=== PATIENT | male | born 2000 | race Caucasian/White ===

== ENCOUNTER → 2023-03-29 | Outpatient (CLI) | payer OTHER, SELFPAY ==
[2023-03-29 18:35] LABS: Amphetamine Urine VISTA NEGATIVE (<1000 ng/mL); Barbiturate Urine VISTA NEGATIVE (< 200 ng/mL); Benzodiazepine Urine VISTA NEGATIVE (< 200 ng/mL); Cocaine Urine VISTA NEGATIVE (< 300 ng/mL); Ecstacy Urine VISTA NEGATIVE (< 500 ng/mL); Methadone Urine VISTA NEGATIVE (< 300 ng/mL); PCP Urine VISTA NEGATIVE (< 25 ng/mL); THC Urine VISTA NEGATIVE (< 50 ng/mL); Vista UDS pH Range 5
== END | disposition home or self-care (01) ==
PROVIDERS: PCP Family Medicine; Referring Provider Family Medicine; Visit Provider Family Medicine
DX: R53.83 Other fatigue (principal)
CPT/HCPCS: 80307

== ENCOUNTER → 2023-04-04 | Outpatient (CLI) | payer OTHER, SELFPAY ==
[2023-04-04 15:02] LABS: Absolute Neutrophil Count 2.2 X10^3/uL (2.0-7.7); Basophil# 0.04 X10^3/uL; Basophil% 0.8 % (0-1); Eosinophil# 0.09 X10^3/uL; Eosinophils% 1.8 % (0-5); Hematocrit 44.8 % (40-54); Hemoglobin 15.2 g/dL (13.0-16.5); Mean Corp Hgb Conc 33.9 g/dL (32-36); Mean Corpuscular Hgb 30.8 pg (27.0-32.0); Mean Corpuscular Volume 90.7 fL (80-94); Mean Platelet Vol. 10.4 fl (6.2-12.0); Monocyte# 0.43 X10^3/uL; Monocyte% 8.8 % (0-10); NRBC Flagged by Analyzer 0 % (0-5); Neutrophil # 2.21 X10^3/uL (2.7-7.7); Neutrophil % 45.4 % (47-70); Platelet Count 256 K/mm3 (150-450); RBC Distribution Width SD 39.7 fl (35.1-43.9); Red Blood Count 4.94 M/mm3 (4.6-6.2); White Blood Count 4.9 K/mm3 (4.4-11.0)
[2023-04-04 15:29] LABS: Erythrocyte Sedimentation Rate 3 mm/hr (0-20)
[2023-04-04 15:33] LABS: ALB/GLOB Ratio 1.1 RATIO (0.9-2.4); AST(SGOT) 18 U/L (15-37); Alanine Aminotransfer ALT/SGPT 21 U/L (16-61); Albumin, Serum 4.6 g/dL (3.2-5.0); Alkaline Phosphatase 78 U/L (45-117); Anion Gap 5 (5-15); BUN 19 mg/dL (7-18); BUN/Creat Ratio 20.1 RATIO (10-20); CRP < 2.90 mg/L (0.0-3.0); Calcium,Total 9.6 mg/dL (8.5-10.1); Chloride 102 mmol/L (98-107); Creatinine, Serum 0.94 mg/dL (0.70-1.30); EST Glomerular Filtration Rate 104 mL/min (>60); Est Glom Filt Rate - Afr Amer 126 mL/min (>60); Ferritin 111 ng/mL (26-388); Globulin 4.1 g/dL (2.2-4.2); Glucose 91 mg/dL (74-106); Iron 103 ug/dL (65-175); Potassium 4.3 mmol/L (3.5-5.1); Protein, Total 8.7 g/dL (6.4-8.2); Sodium Level 135 mmol/L (136-145); Thyroid Stim Hormone (TSH) 1.35 uIU/mL (0.358-3.74)
[2023-04-04 15:35] LABS: Vitamin D,25 Hydroxy 41.4 ng/mL
[2023-04-06 08:13] LABS: ASO Titer 28.3 IU/mL (0.0-200.0)
== END | disposition home or self-care (01) ==
LOC: MTLAB 13:47
PROVIDERS: PCP Family Medicine; Referring Provider Family Medicine; Visit Provider Family Medicine
DX: F41.9 Anxiety disorder, unspecified (principal); A69.20 Lyme disease, unspecified; R53.83 Other fatigue; F50.9 Eating disorder, unspecified
CPT/HCPCS: 36415; 80053; 82306; 82728; 83540; 84403; 84443; 85025; 85652; 86060; 86140

== ENCOUNTER → 2023-05-09 | Outpatient (CLI) | payer OTHER, SELFPAY ==
[2023-05-09 16:11] LABS: Bacteria 0 SEEN /hpf (None Seen); Mucous, Urine 0 SEEN /hpf (<or=2+); Red Blood Cells-Urine 0 SEEN /hpf (0-5); Squamous Epithelial Cells - UA 0 SEEN /hpf (0-5); White Blood Cells 0 SEEN /hpf (0-5)
[2023-05-09 17:41] LABS: Color, Urine Yellow (Yellow); Glucose, Dipstick Normal (Normal); Ketone-Dipstick 5 mg/dl (Negative); Leukocyte Esterase-Dipstick Negative /ul (Negative); Nitrite-Dipstick Negative (Negative); Occult Blood-Urine Negative /ul (Negative); Protein-Dipstick 30 mg/dl (Negative); Specific Gravity, Urine 1.015 (1.002-1.030); Urine Bilirubin Dipstick Negative (Negative); Urine Clarity Clear (Clear); Urine Urobilinogen Normal (Normal); Urine pH 6.5 (5.0 - 8.0)
[2023-05-09 18:56] LABS: Prealbumin 19.6 mg/dL (20.0-40.0)
[2023-05-09 19:12] LABS: HIV - WCH Non-Reactive (Nonreactive); Hepatitis C Antibody Non-Reactive (Nonreactive)
--- OUTSIDE RECORDS SUMMARY | 2023-05-09 19:46 | XMS RPT_ITS | CCD ---
Author Name Unknown Address [id number] [place] [address] Organization [facility] Care Team Providers Care Porcelain Buildup Assistant Name Role Phone PRISCILLA SENA Unavailable Unavailable FRANK CHO Unavailable Unavailable PRISCILLA SENA Unavailable Unavailable Alex Owens Unavailable Unavailable Unavailable Unavailable Unavailable Priscilla Dang Unavailable Siri Gongora Unavailable Unavailable Medications Current Medications Medication Drug Class(es) Dates Sig (Normalized) Sig (Original) mirtazapine 7.5 mg oral tablet (1 source) take 1 tablet by agusto th once daily mirtazapine 7.5 mg oral tablet ; 1 tab(s) orally once a day Quantity: 0 Refills: 0 Ordered: 25-Sep-2020 Alex Olivas Generic Substitution Allowed Completed/Discontinued Medications Medication Drug Class(es) Dates Sig (Normalized) Sig (Original) pantoprazole 40 mg delayed release oral tablet (1 source) Proton Pump Inhibitor Start: 03-15-2019 take 1 tablet by mouth once daily Pantoprazole Sodium 40 MG Oral Tablet Delayed Release TAKE 1 TABLET DAILY. Quantity: 30 Refills: 6 Alex Owens DO Start : 15-Mar-2019 Active Problems Problem Classification Problem Date Documented Da te Episodic/Chronic Residual codes; unclassified (1 source) Early satiety; Translations: [Early satiety] Episodic Unclassified (2 sources) FATIGUE BODY ACHES 09-25-2020 Results Test Name Value Interpretation Reference Range Facil ity Vital Signs Date Time Vital Sign Value Performing Clinician Facility 09-25-2020 15:07-0400 Body height 177.8 cm Priscilla Dang Other Phone: [facility] 09-25-2020 15:07-0400 Body temperature 98.96 [degF] Priscilla Dang Other Phone: [facility] 09-25-2020 15:07-0400 Diastolic blood pressure 73 mm[Hg] Priscilla Dang Other Phone: [facility] 09-25-2020 15:07-0400 Heart rate 104 /min Priscilla Dang Other Phone: [facility] 09-25-2020 15:07-0400 Respiratory rate 20 /min Priscilla Dang Other Phone: [facility] 09-25-2020 15:07-0400 SaO2% (BldA) [Mass fraction] 100 % Priscilla Dang Other Phone: [facility] 09-25-2020 15:07-0400 Systolic blood pressure 121 mm[Hg] Priscilla Dang Other Phone: [facility] Encounters Encounter Date Encounter Type Care Provider Facility Start: 09-25-2020 End: 09-25-2020 Emergency department patient visit Siri Gongora [facility] Start: 11-09-2017 End: 11-10-2017 Patient encounter PRISCILLA SENA [facility] Payers Date Payer Category Payer Policy ID Unknown [id number] Unknown [facility]\MMO S UPER MED Social History Date Type Detail Facility Assertion Unknown if ever smoked [facility] Work Phone: Tobacco smoking consumption unknown [facility] Functional Status Date Assessment Result Facility NEGATED: Highlighted row Functional performance Functional status health issues are not documented Disease [facility] [place] [facility] Work Phone: Mental Status Date Assessment Result Facility NEGATED: Highlighted row Cognitive function [Interpretation] Cognitive status health issues are not documented Disease [facility] Work Phone: Summary Purpose Family History No Family History Records FoundNo Family History Records FoundNo Family History Records FoundNo Family History Records Found Advance Directives No Advanced Directives Records FoundNo Advanced Directives Records FoundNo Advanced Directives Records FoundNo Advanced Directives Records Found Additional Source Comments (unrecognized sect ion and content) No Status Records FoundNo Status Records FoundNo Status Records FoundNo Status Records Found INFORMATION SOURCE (unrecogn ized section and content) DATE CREATED AUTHOR AUTHOR'S ORGANIZ ATION 11/06/2018 [facility] DATE CREATED AUTHOR AUTHOR'S ORGANIZ ATION 09/30/2020 [facility] DATE CREATED AUTHOR AUTHOR'S ORGANIZ ATION 02/20/2021 [facility] <item> Privacy Markings (unrecogniz ed section and content) Section Author: Neema Vo PROHIBITION ON REDISCLOSURE OF CONFIDENTIAL INFORMATION This notice accompanies a disclosure of information concerning a client made to you with the consent of such client. FOR RECORDS PERTAINING TO PATIENTS WHO ARE OR HAVE BEEN ENROLLED IN A CHEMICAL DEPENDENCY/SUBSTANCEABUSE PROGRAM, SOME INFORMATION MAY BE OMITTED. This clinical summary was aggregated from multiple sources. Caution should be exercised in using it in the provision of clinical care. This summary normalizes information from multiple sources, and as a consequence, information in this document may materially change the coding, format and clinical context of patient data. In addition, data may be omitted in some cases. CLINICAL DECISIONS SHOULD BE BASED ON THE PRIMARY CLINICAL RECORDS. Bolongaro Trevor [facility]. provides no warranty or guarantee of the accuracy or completeness of information in this document.
[2023-05-11 14:10] LABS: Lyme IGG CIA Positive (Negative); Lyme IGM CIA Positive (Negative); Lyme Scn Total Ab w/Rflx Positive (Negative)
== END | disposition home or self-care (01) ==
LOC: MTLAB 16:05
PROVIDERS: PCP Family Medicine; Referring Provider Family Medicine; Visit Provider Family Medicine
DX: R63.4 Abnormal weight loss (principal); R53.83 Other fatigue
CPT/HCPCS: 36415; 81001; 84134; 86618; 86703; 86803

== ENCOUNTER → 2023-05-10 | Outpatient (CLI) | payer OTHER, SELFPAY ==
--- OUTSIDE RECORDS SUMMARY | 2023-05-10 19:32 | XMS RPT_ITS | CCD ---
Author Name Unknown Address [address] [place] [address] Organization [facility] Care Team Providers Care Barbering Instructor Name Role Phone PRISCILLA SENA Unavailable Unavailable [...] height 177.8 cm Priscilla Dang Other Phone: [facility] 09-25-2020 15:07-0400 Body temperature 98.96 [degF] Priscilla Dang Other Phone: [facility] 09-25-2020 15:07-0400 Diastolic blood pressure 73 mm[Hg] Priscilla Dang Other Phone: [facility] 09-25-2020 15:07-0400 Heart rate 104 /min Priscilla Dang Other Phone: [facility] 09-25-2020 15:07-0400 Respiratory rate 20 /min Priscilla Dang Other Phone: [facility] 09-25-2020 15:07-0400 SaO2% (BldA) [Mass fraction] 100 % Priscilla Dang Other Phone: [facility] 09-25-2020 15:07-0400 Systolic blood pressure 121 mm[Hg] Priscilla Dang Other Phone: [facility] Encounters Encounter Date Encounter Type Care Provider Facility Start: 09-25-2020 End: 09-25-2020 Emergency department patient visit Siri Gongora [facility] Start: 11-09-2017 End: 11-10-2017 Patient encounter PRISCILLA SENA [facility] Payers Date Payer Category Payer Policy ID Unknown [id number] Unknown [facility]\MMO S UPER MED Social History Date Type Detail Facility Assertion Unknown if ever smoked [facility] [facility] Work Phone: Tobacco smoking consumption unknown [facility] Functional Status Date Assessment Result Facility NEGATED: [...] DATE CREATED AUTHOR AUTHOR'S ORGANIZ ATION 11/06/2018 [facility] DATE CREATED AUTHOR AUTHOR'S ORGANIZ ATION 09/30/2020 [facility] DATE CREATED AUTHOR AUTHOR'S ORGANIZ ATION 02/20/2021 [...] BE BASED ON THE PRIMARY CLINICAL RECORDS. [employer]. provides no warranty or guarantee of the accuracy or completeness of information in this document.
[2023-05-12 16:10] LABS: H. PYLORI STOOL AG Negative (Negative)
== END | disposition home or self-care (01) ==
LOC: MTLAB 14:33
PROVIDERS: PCP Family Medicine; Referring Provider Family Medicine; Visit Provider Family Medicine
DX: R63.4 Abnormal weight loss (principal)
CPT/HCPCS: 87338

== ENCOUNTER 2025-02-15 22:40 | Emergency (ER) | payer SELFPAY ==
[2025-02-15 22:42] VITALS: BP 119/69; PULSE 96; RESP 18; TEMP 36.3; O2SAT 98; BMI 17.6
--- NOTE | 2025-02-15 22:59 | EKG12_ITS ---
Test Reason : DYSRHYTHMIA Blood Pressure : */* mmHG Vent. Rate : 85 BPM Atrial Rate : 85 BPM P-R Int : 144 ms QRS Dur : 102 ms QT Int : 352 ms P-R-T Axes : 84 61 23 degrees QTcB Int : 418 ms Normal sinus rhythm Nonspecific T wave abnormality Abnormal ECG Confirmed by WES BLUNT, DANE ([id number]), technical editor RAINER CASTRO ([id number]) on 02/18/2025 6:39:42 AM Referred By: Confirmed By: DANE HARVEY MD
--- NOTE | 2025-02-15 22:59 | CT_ITS ---
PROCEDURE: CT CHEST, ABD, PEL W/CONTRAST 02/16/2025 REASON FOR EXAM: 20 LBS WEIGHT LOSS IN LAST MONTH, POOR PO INTAKE TECHNIQUE: Chest, abdomen and pelvis CT with intravenous contrast. Coronal and Sagittal reconstruction series were provided. One or more dose reduction techniques were used (e.g., Automated exposure control, adjustment of the mA and/or kV according to patient size, use of iterative reconstruction technique. PATIENT PREPARATION: Per protocol ORAL CONTRAST TYPE: None. CONTRAST: Isovue-350 VOLUME: 100mL RADIATION DOSE SUMMARY: CTDlvol: 6.13 mGy DLP: 495 mGycm COMPARISON: None. FINDINGS: Normal enhancement of the main pulmonary artery and right and left pulmonary arteries. Normal thoracic aorta and visualized great vessels. Normal heart and pericardium. Normal mediastinum. Normal hilar regions. Normal visualized trachea and bronchi. The lungs are well expanded. Normal pulmonary parenchyma. Normal pleura. Normal chest wall structures. Normal liver. Normal gallbladder and extrahepatic biliary system. Normal spleen. Normal pancreas. Normal bilateral adrenal glands. Normal size of the right kidney. There is no right renal mass. There are no right renal calculi. There is no right hydronephrosis. Normal visualized right ureter. Normal size of the left kidney. There is no left renal mass. There are no left renal calculi. There is no left hydronephrosis. Normal visualized left ureter. Normal visualized stomach. Normal small intestine. Normal colon. The appendix is visualized and appears normal. There is no demonstrated peritoneal fluid. Normal abdominal aorta. Normal inferior vena cava. Normal retroperitoneum. Normal urinary bladder. There is no pelvic mass lesion or lymphadenopathy. There is no pelvic fluid. Normal abdominal wall. Normal osseous structures. CT/CT Chest, Abd, Pel w/Contrast IMPRESSION: No CT evidence of an acute abnormality. No mass lesion is identified. Reading Location: [place] [id number]
--- OUTSIDE RECORDS SUMMARY | 2025-02-15 23:01 | XMS RPT_ITS | CCD ---
Author Organization [facility] Care Team Providers Care Vacuum Drier Tender Name Role Phone PRISCILLA SENA Unavailable Unavailable FRANK CHO Unavailable Unavailable PRISCILLA SENA Unavailable Unavailable Alex Owens Unavailable Unavailable Unavailable Unavailable Unavailable Priscilla Dang Unavailable Siri Gongora Unavailable Unavailable Sylvester Calvin Attending Unavailable Sylvester Calvin Referring Unavailable Sylvester Calvin Primary Care Unavailable Sylvester Calvin Referring Unavailable Sylvester Calvin Primary Care Unavailable Sylvester Calvin Attending Unavailable Sylvester Calvin Referring Unavailable Sylvester Calvin Primary Care Unavailable Sylvester Calvin Attending Unavailable Sylvester Calvin Referring Unavailable Sylvester Calvin Primary Care Unavailable Sylvester Calvin Attending Unavailable Medications Current Medications Medication Drug Class(es) [...] Classification Problem Date Documented Da te Episodic/Chronic Anxiety disorders (1 source) Anxiety disorder, unspecified; Translations: [Anxiety disorder, unspecified] Onset: 04-07-2023 Chronic Malaise and fatigue (1 source) Other fatigue; Translations: [Other fatigue] Onset: 04-01-2023 Episodic Other nutritional; endocrine; and metabolic disorders (1 source) Abnormal weight loss; Translations: [Abnormal weight loss] Onset: 05-16-2023 Episodic Residual codes; unclassified (1 source) Early satiety; Translations: [Early satiety] Episodic Unclassified (2 sources) FATIGUE BODY ACHES 09-25-2020 Comment on above: FATIGUE BODY ACHES Results Test Name Value Interpretation Reference Range Facility H. PYLORI STOOL AGon 024 H PYLORI STL AG Negative Normal Negative [facility] Comment on above: Result Comment: Perf ormed at: [facility] [id number] Emt/Paramedic: Jan Choe PhD, Phone: [phone] Performed By: #### L 503.6150, L503.6550, L101.9900, L501.9520, L500.4050, L3100.7700, L100.0100, L509.3000, L506.1000, L501.6710 #### [facility] [address] [facility] [place], [address] Lyme Screen W/Reflex WBon Lyme IGG VAHE Positive Normal Negative [facility] Comment on above: Performed By: #### L 503.6150, L503.6550, L101.9900, L501.9520, L500.4050, L3100.7700, L100.0100, L509.3000, L506.1000, L501.6710 #### [facility] [address] [place], [place], [id number] Lyme IGM VAHE Positive Normal Negative [facility] Comment on above: Performed By: #### L 503.6150, L503.6550, L101.9900, L501.9520, L500.4050, L3100.7700, L100.0100, L509.3000, L506.1000, L501.6710 #### [facility] [address] [place], [place], [id number] LYME SCREEN Ab Positive Normal Negative [facility] Comment on above: Result Comment: Evid ence of Lyme antibodies; confirmation indicated. See Lyme IgG and Lyme IgM results (reflex testing), and Lyme interpretation for final interpretation of the Lyme serology reflex algorithm. Performed By: #### L 503.6150, L503.6550, L101.9900, L501.9520, L500.4050, L3100.7700, L100.0100, L509.3000, L506.1000, L501.6710 #### [facility] [address] [place], [place], [id number] LYME SCREEN Ab Comment Abnormal . [facility] Comment on above: Result Comment: Lyme IgM/IgG Abs Detected Results are consistent with B. burgdorferi infection (Lyme disease) in the recent or remote past. IgG-class antibodies may remain detectable for months to years following resolution of infection. Results should not be used to monitor or establish adequate response to therapy. Response to therapy is confirmed through resolution of clinical symptoms; additional laboratory testing should not be performed. If both tests are equivocal consider repeat testing in 7 to 14 days if clinically warranted. Performed at: [facility] [address] [id number] Emt/Paramedic: Jan Choe PhD, Phone: [phone] Performed By: #### L 503.6150, L503.6550, L101.9900, L501.9520, L500.4050, L3100.7700, L100.0100, L509.3000, L506.1000, L501.6710 #### [facility] [address] [place], [place], [id number] Stool Helicobacter pylori an tigen detection by immunoassayOrdered By: Sylvester Calvin on 05-10-2023 H. pylori Ag IA Ql (Stl) Negative Negative [facility] Comment on above: Performed at: [facility] [address] [id number] Director: Jan Choe PhD, Phone: [phone] Basophil percentageOrdered B y: Sylvester Calvin on 05-09-2023 Basophil percentage 0 SEEN /hpf 0-5 [facility] Bilirubin Test strip Ql (U)O rdered By: Sylvester Calvin on 05-09-2023 Bilirubin Ql (U) Negative Negative [facility] HIV - WCHon 05-09-2023 HIV Non-Reactive Normal Nonreactive [facility] Comment on above: Performed By: #### L 503.6150, L503.6550, L101.9900, L501.9520, L500.4050, L3100.7700, L100.0100, L509.3000, L506.1000, L501.6710 #### [facility] [address] [place], [address] HIV 1 and HIV-2 antibody ass ay with HIV-1 p24 antigen detectionOrdered By: Sylvester Calvin on 05-09-2023 HIV 1+2 Ab+HIV1 p24 Ag IA Ql Non-Reactive Nonreactive [facility] Hepatitis C Antibodyon 05-08 Hepatitis C AB Non-Reactive [facility] Comment on above: Result Comment: Non Reactive: < 0.8 Equivocal: >/= 0.8 to < 1.0 Reactive: >/= 1.0 The CDC requires that a reactive/equivocal HCV antibody result be sent out for confirmation. HCV Quant by PCR testing. Performed By: #### L 503.6150, L503.6550, L101.9900, L501.9520, L500.4050, L3100.7700, L100.0100, L509.3000, L506.1000, L501.6710 #### [facility] [address] [place], [address] Interpretation of Borrelia b urgdorferi antibody assayOrdered By: Sylvester Calvin on 05-09-2023 B. burgdorferi Ab (S) [Interp] Comment . [facility] Comment on above: Lyme IgM/IgG Abs Det ectedResults are consistent with B. burgdorferi infection (Lymedisease) in the recent or remote past. IgG-class antibodiesmay remain detectable for months to years followingresolution of infection. Results should not be used tomonitor or establish adequate response to therapy. Responseto therapy is confirmed through resolution of clinicalsymptoms; additional laboratory testing should not beperformed. If both tests are equivocal consider repeattesting in 7 to 14 days if clinically warranted.Performed at: [facility] [id number] Director: Jan Choe PhD, Phone: [phone] Ketones Test strip Ql (U)Ord ered By: Sylvester Calvin on 05-09-2023 Ketones Ql (U) 5 mg/dl Negative [facility] Mucus LM Ql (Urine sed)Order ed By: Sylvester Calvin on 05-09-2023 Mucus Ql (Urine sed) 0 SEEN /hpf [facility] Nitrite Test strip Ql (U)Ord ered By: Sylvester Calvin on 05-09-2023 Nitrite Ql (U) Negative Negative [facility] No Panel InformationOrdered By: Sylvester Calvin on 05-09-2023 CSF Lyme Disease IgM Antibody Positive Negative [facility] Hepatitis C Antibody Non-Reactive Nonreactive [facility] Comment on above: Non Reactive: < 0.8 Equivocal: >/= 0.8 to < 1.0 Reactive: >/= 1.0The CDC requires that a reactive/equivocal HCV antibody result be sent out for confirmation. HCV Quant by PCR testing. Lyme Disease IgG Antibody Positive Negative [facility] Urine RBC 0 SEEN /hpf 0-5 [facility] Prealbuminon 05-09-2023 Prealbumin [Mass/Vol] 19.6 mg/dL Low 20.0-40.0 [facility] Comment on above: Performed By: #### L 503.6150, L503.6550, L101.9900, L501.9520, L500.4050, L3100.7700, L100.0100, L509.3000, L506.1000, L501.6710 #### [facility] [address] [place], [place], [address] Protein Test strip Ql (U)Ord ered By: Sylvester Calvin on 05-09-2023 Protein Ql (U) 30 mg/dl Negative [facility] Serum or plasma transthyreti n measurement (mass/volume)Ordered By: Sylvester Calvin on 05-09-2023 Prealbumin [Mass/Vol] 19.6 mg/dL 20.0-40.0 [facility] Squamous epithelial cells de tection in urine sediment by light microscopyOrdered By: Sylvester Calvin on 05-09-2023 Epithelial cells.squamous LM Ql (Urine sed) 0 SEEN /hpf 0-5 [facility] Thin prep Papanicolaou smear with manual screeningOrdered By: Sylvester Calvin on 05-09-2023 Thin prep Papanicolaou smear with manual screening Positive Negative [facility] Comment on above: Evidence of Lyme ant ibodies; confirmation indicated. SeeLyme IgG and Lyme IgM results (reflex testing), and Lymeinterpretation for final interpretation of the Lymeserology reflex algorithm. Urinalysis, Completeon 05-08 BACTERIA 0 SEEN Normal None Seen [facility] Comment on above: Order Comment: CLEAN CATCH Performed By: #### L 503.6150, L503.6550, L101.9900, L501.9520, L500.4050, L3100.7700, L100.0100, L509.3000, L506.1000, L501.6710 #### [facility] [address] [place], [place], [id number] EPI,SQUAMOUS 0 SEEN Normal 0-5 [facility] Comment on above: Order Comment: CLEAN CATCH Performed By: #### L 503.6150, L503.6550, L101.9900, L501.9520, L500.4050, L3100.7700, L100.0100, L509.3000, L506.1000, L501.6710 #### [facility] [address] [place], [address] Mucus Ql (Urine sed) 0 SEEN Normal [facility] Comment on above: Order Comment: CLEAN CATCH Performed By: #### L 503.6150, L503.6550, L101.9900, L501.9520, L500.4050, L3100.7700, L100.0100, L509.3000, L506.1000, L501.6710 #### [facility] [address] [place], [address] RBC 0 SEEN Normal 0-5 [facility] Comment on above: Order Comment: CLEAN CATCH Performed By: #### L 503.6150, L503.6550, L101.9900, L501.9520, L500.4050, L3100.7700, L100.0100, L509.3000, L506.1000, L501.6710 #### [facility] [address] [place], [address] WBC 0 SEEN Normal 0-5 [facility] Comment on above: Order Comment: CLEAN CATCH Performed By: #### L 503.6150, L503.6550, L101.9900, L501.9520, L500.4050, L3100.7700, L100.0100, L509.3000, L506.1000, L501.6710 #### [facility] [address] [place], [address] Urine blood detectionOrdered By: Sylvester Calvin on 05-09-2023 RBC Ql (U) Negative Negative [facility] Urine clarityOrdered By: Sanjay Calvin on 05-09-2023 Clarity (U) Clear Clear [facility] Urine color determinationOrd ered By: Sylvester Calvin on 05-09-2023 Color (U) Yellow Yellow [facility] Urine glucose detectionOrder ed By: Sylvester Calvin on 05-09-2023 Glucose Ql (U) Normal mg/dl Normal [facility] Urine leukocyte esterase det ection by dipstickOrdered By: Sylvester Calvin on 05-09-2023 Leukocyte esterase Test strip Ql (U) Negative Negative [facility] Urine pHOrdered By: Brenda Calvin on 05-09-2023 pH (U) 6.5 [pH] 5.0 - 8.0 [facility] Urine sediment bacteria coun t by microscopy (number/high power field)Ordered By: Sylvester Calvin on 05-09-2023 Bacteria LM.HPF (Urine sed) [#/Area] 0 /[HPF] None Seen [facility] Urine specific gravity measu rementOrdered By: Sylvester Calvin on 05-09-2023 Specific gravity (U) [Rel density] 1.015 1.002-1.030 [facility] Urine urobilinogen measureme ntOrdered By: Sylvester Calvin on 05-09-2023 Urobilinogen Ql (U) Normal mg/dl Normal [facility] ASO Titeron 04-06-2023 ASO Ab 28.3 IU/mL Normal 0.0-200.0 [facility] Comment on above: Result Comment: Perf ormed at: [facility] [address] [place], [place] [id number] Emt/Paramedic: Jan Choe PhD, Phone: [phone] Performed By: #### L 503.6150, L503.6550, L101.9900, L501.9520, L500.4050, L3100.7700, L100.0100, L509.3000, L506.1000, L501.6710 #### [facility] [address] [place], [address] ASO titerOrdered By: Cezar Calvin on 04-04-2023 Streptolysin O Ab (S) [Titer] 28.3 IU/mL 0.0-200.0 [facility] Comment on above: Performed at: [facility] [address] [place], [place] [id number] Director: Jan Choe PhD, Phone: [phone] Absolute lymphocyte countOrd ered By: Sylvester Calvin on 04-04-2023 Lymphocytes Auto (Unsp spec) [#/Vol] 2.10 10*3/uL 0.83-4.51 [facility] Automated lymphocyte count a s percentage of total leukocytesOrdered By: Sylvester Calvin on 04-04-2023 Lymphocytes/100 WBC Auto (Unsp spec) 43.0 % 19-41 [facility] Basophil percentageOrdered B y: Sylvester Calvin on 04-04-2023 Basophils/100 WBC (Bld) 0.8 % 0-1 [facility] Bilirubin [Mass/Vol] 1.30 mg/dL 0.20-1.00 [facility] Comment on above: For patients on eltr ombopag therapy, use of Dimension [place] TBIL is not recommended. Chloride [Moles/Vol] 102 mmol/L 98-107 [facility] Eosinophils/100 WBC (Bld) 1.8 % 0-5 [facility] Glucose [Mass/Vol] 91 mg/dL 74-106 [facility] Hemoglobin (Bld) [Mass/Vol] 15.2 g/dL 13.0-16.5 [facility] Monocytes/100 WBC (Bld) 8.8 % 0-10 [facility] Neutrophils (Bld) [#/Vol] 2.2 10*3/uL 2.0-7.7 [facility] Neutrophils/100 WBC (Bld) 45.4 % 47-70 [facility] Potassium [Moles/Vol] 4.3 mmol/L 3.5-5.1 [facility] Protein [Mass/Vol] 8.7 g/dL 6.4-8.2 [facility] Sodium [Moles/Vol] 135 mmol/L 136-145 [facility] Testosterone [Mass/Vol] 578.29 ng/dL [facility] Comment on above: CENTRAL 90% REFERENC E RANGES MALE AGE <50 197.44 - 669.58 ng/dL MALE AGE > or = 50 187.72 - 684.19 ng/dL FEMALE AGE <50 8.38 - 35.01 ng/dL FEMALE AGE > or = 50 <7.00 - 35.92 ng/dL Effective as of 09/30/20 WBC (Bld) [#/Vol] 4.9 10*3/uL 4.4-11.0 [facility] CBC W/Diff, Automatedon 03-08 Absolute Lymph 2.10 X10 3/uL Normal 0.83-4.51 [facility] Comment on above: Performed By: #### L 503.6150, L503.6550, L101.9900, L501.9520, L500.4050, L3100.7700, L100.0100, L509.3000, L506.1000, L501.6710 #### [facility] [address] [facility], [address] Absolute Neut 2.2 X10 3/uL Normal 2.0-7.7 [facility] Comment on above: Performed By: #### L 503.6150, L503.6550, L101.9900, L501.9520, L500.4050, L3100.7700, L100.0100, L509.3000, L506.1000, L501.6710 #### [facility] [address] [facility] [place], [place], [phone] (612) Basophils/100 WBC (Bld) 0.8 % Normal 0-1 [facility] Comment on above: Performed By: #### L 503.6150, L503.6550, L101.9900, L501.9520, L500.4050, L3100.7700, L100.0100, L509.3000, L506.1000, L501.6710 #### [facility] [address] [facility] [place], [place], [phone] (554) Eosinophils/100 WBC (Bld) 1.8 % Normal 0-5 [facility] Comment on above: Performed By: #### L 503.6150, L503.6550, L101.9900, L501.9520, L500.4050, L3100.7700, L100.0100, L509.3000, L506.1000, L501.6710 #### [facility] [address] [place], [place], [phone] ([phone]) Erythrocyte distribution width (RBC) [Ratio] 12.0 % Normal 11.6-14.6 [facility] Comment on above: Performed By: #### L 503.6150, L503.6550, L101.9900, L501.9520, L500.4050, L3100.7700, L100.0100, L509.3000, L506.1000, L501.6710 #### [facility] [address] [place], [address] Hematocrit (Bld) [Volume fraction] 44.8 % Normal 40-54 [facility] Comment on above: Performed By: #### L 503.6150, L503.6550, L101.9900, L501.9520, L500.4050, L3100.7700, L100.0100, L509.3000, L506.1000, L501.6710 #### [facility] [address] [place], [address] Hemoglobin (Bld) [Mass/Vol] 15.2 g/dL Normal 13.0-16.5 [facility] Comment on above: Performed By: #### L 503.6150, L503.6550, L101.9900, L501.9520, L500.4050, L3100.7700, L100.0100, L509.3000, L506.1000, L501.6710 #### [facility] [address] [place], [address] IG% 0.200 Normal 0.0-0.9 [facility] Comment on above: Result Comment: IG% - Immature Granulocytes (promyelocytes, myelocytes and metamyelocytes) > 1% indicates that a LEFT SHIFT is Present. Performed By: #### L 503.6150, L503.6550, L101.9900, L501.9520, L500.4050, L3100.7700, L100.0100, L509.3000, L506.1000, L501.6710 #### [facility] [address] [place], [address] Lymphocytes/100 WBC (Bld) 43.0 % High 19-41 [facility] Comment on above: Performed By: #### L 503.6150, L503.6550, L101.9900, L501.9520, L500.4050, L3100.7700, L100.0100, L509.3000, L506.1000, L501.6710 #### [facility] [address] [place], [address] MCH (RBC) [Entitic mass] 30.8 pg Normal 27.0-32.0 [facility] Comment on above: Performed By: #### L 503.6150, L503.6550, L101.9900, L501.9520, L500.4050, L3100.7700, L100.0100, L509.3000, L506.1000, L501.6710 #### [facility] [address] [place], [address] MCHC (RBC) [Mass/Vol] 33.9 g/dL Normal 32-36 [facility] Comment on above: Performed By: #### L 503.6150, L503.6550, L101.9900, L501.9520, L500.4050, L3100.7700, L100.0100, L509.3000, L506.1000, L501.6710 #### [facility] [address] [place], [address] MCV (RBC) [Entitic vol] 90.7 fL Normal 80-94 [facility] Comment on above: Performed By: #### L 503.6150, L503.6550, L101.9900, L501.9520, L500.4050, L3100.7700, L100.0100, L509.3000, L506.1000, L501.6710 #### [facility] [address] [place], [address] Monocytes/100 WBC (Bld) 8.8 % Normal 0-10 [facility] Comment on above: Performed By: #### L 503.6150, L503.6550, L101.9900, L501.9520, L500.4050, L3100.7700, L100.0100, L509.3000, L506.1000, L501.6710 #### [facility] [address] [place], [address] Neutrophils/100 WBC (Bld) 45.4 % Low 47-70 [facility] Comment on above: Performed By: #### L 503.6150, L503.6550, L101.9900, L501.9520, L500.4050, L3100.7700, L100.0100, L509.3000, L506.1000, L501.6710 #### [facility] [address] [place], [address] Nucleated RBC (Bld) [#/Vol] 0 10*3/uL Normal 0-5 [facility] Comment on above: Performed By: #### L 503.6150, L503.6550, L101.9900, L501.9520, L500.4050, L3100.7700, L100.0100, L509.3000, L506.1000, L501.6710 #### [facility] [address] [place], [address] Platelet mean volume (Bld) [Entitic vol] 10.4 fL Normal 6.2-12.0 [facility] Comment on above: Performed By: #### L 503.6150, L503.6550, L101.9900, L501.9520, L500.4050, L3100.7700, L100.0100, L509.3000, L506.1000, L501.6710 #### [facility] [address] [place], [address] Platelets (Bld) [#/Vol] 256 10*3/uL Normal 150-450 [facility] Comment on above: Performed By: #### L 503.6150, L503.6550, L101.9900, L501.9520, L500.4050, L3100.7700, L100.0100, L509.3000, L506.1000, L501.6710 #### [facility] [address] [place], [address] RBC (Bld) [#/Vol] 4.94 10*6/uL Normal 4.6-6.2 [facility] Comment on above: Performed By: #### L 503.6150, L503.6550, L101.9900, L501.9520, L500.4050, L3100.7700, L100.0100, L509.3000, L506.1000, L501.6710 #### [facility] [address] [place], [address] RDW SD 39.7 fl Normal 35.1-43.9 [facility] Comment on above: Performed By: #### L 503.6150, L503.6550, L101.9900, L501.9520, L500.4050, L3100.7700, L100.0100, L509.3000, L506.1000, L501.6710 #### [facility] [address] [place], [address] WBC (Bld) [#/Vol] 4.9 10*3/uL Normal 4.4-11.0 [facility] Comment on above: Performed By: #### L 503.6150, L503.6550, L101.9900, L501.9520, L500.4050, L3100.7700, L100.0100, L509.3000, L506.1000, L501.6710 #### [facility] [address] [place], [address] CRPon 04-04-2023 C-REACTIVE PROT < 2.90 Normal 0.0-3.0 [facility] Comment on above: Result Comment: C-Re active Protein (CRP) provides useful information for the diagnosis, therapy and monitoring of inflammatory processes and associated diseases. For the evaluation of Relative Risk for Cardiovascular Disease, a High Sensitivity CRP (HSCRP) should be ordered. Performed By: #### L 503.6150, L503.6550, L101.9900, L501.9520, L500.4050, L3100.7700, L100.0100, L509.3000, L506.1000, L501.6710 #### [facility] [address] [place], [address] Comprehensive Metabolic Prof ilon 04-04-2023 Albumin [Mass/Vol] 4.6 g/dL Normal 3.2-5.0 [facility] Comment on above: Performed By: #### L 503.6150, L503.6550, L101.9900, L501.9520, L500.4050, L3100.7700, L100.0100, L509.3000, L506.1000, L501.6710 #### [facility] [address] [place], [address] Albumin/Globulin [Mass ratio] 1.1 {ratio} Normal 0.9-2.4 [facility] Comment on above: Performed By: #### L 503.6150, L503.6550, L101.9900, L501.9520, L500.4050, L3100.7700, L100.0100, L509.3000, L506.1000, L501.6710 #### [facility] [address] [place], [address] ALK P 78 U/L Normal 45-117 [facility] Comment on above: Performed By: #### L 503.6150, L503.6550, L101.9900, L501.9520, L500.4050, L3100.7700, L100.0100, L509.3000, L506.1000, L501.6710 #### [facility] [address] [place], [address] ALT [Catalytic activity/Vol] 21 U/L Normal 16-61 [facility] Comment on above: Performed By: #### L 503.6150, L503.6550, L101.9900, L501.9520, L500.4050, L3100.7700, L100.0100, L509.3000, L506.1000, L501.6710 #### [facility] [address] [place], [address] AST [Catalytic activity/Vol] 18 U/L Normal 15-37 [facility] Comment on above: Performed By: #### L 503.6150, L503.6550, L101.9900, L501.9520, L500.4050, L3100.7700, L100.0100, L509.3000, L506.1000, L501.6710 #### [facility] [address] [place], [address] Bilirubin [Mass/Vol] 1.30 mg/dL High 0.20-1.00 [facility] Comment on above: Result Comment: For patients on eltrombopag therapy, use of Dimension [place] TBIL is not recommended. Performed By: #### L 503.6150, L503.6550, L101.9900, L501.9520, L500.4050, L3100.7700, L100.0100, L509.3000, L506.1000, L501.6710 #### [facility] [address] [place], [address] BUN/CRE 20.1 RATIO High 10-20 [facility] Comment on above: Performed By: #### L 503.6150, L503.6550, L101.9900, L501.9520, L500.4050, L3100.7700, L100.0100, L509.3000, L506.1000, L501.6710 #### [facility] [address] [place], [address] CA,Total 9.6 mg/dL Normal 8.5-10.1 [facility] Comment on above: Performed By: #### L 503.6150, L503.6550, L101.9900, L501.9520, L500.4050, L3100.7700, L100.0100, L509.3000, L506.1000, L501.6710 #### [facility] [address] [place], [address] Chloride [Moles/Vol] 102 mmol/L Normal 98-107 [facility] Comment on above: Performed By: #### L 503.6150, L503.6550, L101.9900, L501.9520, L500.4050, L3100.7700, L100.0100, L509.3000, L506.1000, L501.6710 #### [facility] [address] [place], [place], [phone] (248 CO2 [Moles/Vol] 28.0 mmol/L Normal 21.0-32.0 [facility] Comment on above: Performed By: #### L 503.6150, L503.6550, L101.9900, L501.9520, L500.4050, L3100.7700, L100.0100, L509.3000, L506.1000, L501.6710 #### [facility] [address] [place], [place], [phone] ([phone] Creatinine [Mass/Vol] 0.94 mg/dL Normal 0.70-1.30 [facility] Comment on above: Result Comment: The validity of the calculated GFR GFRAA in patients over 70 years has not been determined. Clinical correlation is essential. Performed By: #### L 503.6150, L503.6550, L101.9900, L501.9520, L500.4050, L3100.7700, L100.0100, L509.3000, L506.1000, L501.6710 #### [facility] [address] [place], [address] EST GFR - AA 126 mL/min Normal >60 [facility] Comment on above: Result Comment: Afri can Congolese GFR Calc Performed By: #### L 503.6150, L503.6550, L101.9900, L501.9520, L500.4050, L3100.7700, L100.0100, L509.3000, L506.1000, L501.6710 #### [facility] [address] [place], [address] GAP 5 Normal 5-15 [facility] Comment on above: Performed By: #### L 503.6150, L503.6550, L101.9900, L501.9520, L500.4050, L3100.7700, L100.0100, L509.3000, L506.1000, L501.6710 #### [facility] [address] [place], [place], [phone] (100) GFR/1.73 sq M.predicted among non-blacks MDRD (S/P/Bld) [Vol rate/Area] 104 mL/min/{1.73_m2} Normal >60 [facility] Comment on above: Result Comment: Non- GFR Calc Performed By: #### L 503.6150, L503.6550, L101.9900, L501.9520, L500.4050, L3100.7700, L100.0100, L509.3000, L506.1000, L501.6710 #### [facility] [address] [place], [place], [phone] (040) Globulin (S) [Mass/Vol] 4.1 g/dL Normal 2.2-4.2 [facility] Comment on above: Performed By: #### L 503.6150, L503.6550, L101.9900, L501.9520, L500.4050, L3100.7700, L100.0100, L509.3000, L506.1000, L501.6710 #### [facility] [address] [place], [place], [phone] (353) Glucose [Mass/Vol] 91 mg/dL Normal 74-106 [facility] Comment on above: Performed By: #### L 503.6150, L503.6550, L101.9900, L501.9520, L500.4050, L3100.7700, L100.0100, L509.3000, L506.1000, L501.6710 #### [facility] [address] [place], [address] Potassium [Moles/Vol] 4.3 mmol/L Normal 3.5-5.1 [facility] Comment on above: Performed By: #### L 503.6150, L503.6550, L101.9900, L501.9520, L500.4050, L3100.7700, L100.0100, L509.3000, L506.1000, L501.6710 #### [facility] [address] [place], [address] Sodium [Moles/Vol] 135 mmol/L Low 136-145 [facility] Comment on above: Performed By: #### L 503.6150, L503.6550, L101.9900, L501.9520, L500.4050, L3100.7700, L100.0100, L509.3000, L506.1000, L501.6710 #### [facility] [address] [place], [address] T PROT 8.7 g/dL High 6.4-8.2 [facility] Comment on above: Performed By: #### L 503.6150, L503.6550, L101.9900, L501.9520, L500.4050, L3100.7700, L100.0100, L509.3000, L506.1000, L501.6710 #### [facility] [address] [place], [address] Urea nitrogen [Mass/Vol] 19 mg/dL High 7-18 [facility] Comment on above: Performed By: #### L 503.6150, L503.6550, L101.9900, L501.9520, L500.4050, L3100.7700, L100.0100, L509.3000, L506.1000, L501.6710 #### [facility] [address] [place], [place], [id number] Determination of erythrocyte mean corpuscular volume (MCV)Ordered By: Sylvester Calvin on 04-04-2023 MCV (RBC) [Entitic vol] 90.7 fL 80-94 [facility] Erythrocyte Sed Rateon 04-04 SED RATE 3 mm/hr Normal 0-20 [facility] Comment on above: Performed By: #### L 503.6150, L503.6550, L101.9900, L501.9520, L500.4050, L3100.7700, L100.0100, L509.3000, L506.1000, L501.6710 #### [facility] [address] [place], [place], [id number] Erythrocyte distribution wid th ratioOrdered By: Sylvester Calvin on 04-04-2023 Erythrocyte distribution width (RBC) [Ratio] 12.0 % 11.6-14.6 [facility] Erythrocyte distribution wid th standard deviationOrdered By: Sylvester Calvin on 04-04-2023 Erythrocyte distribution width (RBC) [Entitic vol] 39.7 fL 35.1-43.9 [facility] Erythrocyte sedimentation ra teOrdered By: Sylvester Calvin on 04-04-2023 ESR (Bld) [Velocity] 3 mm/h 0-20 [facility] Ferritinon 04-04-2023 Ferritin [Mass/Vol] 111 ng/mL Normal 26-388 [facility] Comment on above: Performed By: #### L 503.6150, L503.6550, L101.9900, L501.9520, L500.4050, L3100.7700, L100.0100, L509.3000, L506.1000, L501.6710 #### [facility] [address] [place], [place], [phone] Hematocrit Auto (Bld) [Volum e fraction]Ordered By: Sylvester Calvin on 04-04-2023 Hematocrit (Bld) [Volume fraction] 44.8 % 40-54 [facility] Immature granulocytes/100 WB C Auto (Bld)Ordered By: Sylvester Calvin on 04-04-2023 Immature granulocytes/100 WBC (Bld) 0.200 % 0.0-0.9 [facility] Comment on above: IG% - Immature Granu locytes (promyelocytes, myelocytes and metamyelocytes) > 1% indicates that a LEFT SHIFT is Present. Ironon 04-04-2023 Iron [Mass/Vol] 103 ug/dL Normal 65-175 [facility] Comment on above: Performed By: #### L 503.6150, L503.6550, L101.9900, L501.9520, L500.4050, L3100.7700, L100.0100, L509.3000, L506.1000, L501.6710 #### [facility] [address] [place], [place], [phone] Iron measurement (mass/mass) Ordered By: Sylvester Calvin on 04-04-2023 Iron (Unsp spec) [Mass/Mass] 103 ug/dL 65-175 [facility] Laboratory - Chemistry and C hemistry - challengeOrdered By: Sylvestre Calvin on 04-04-2023 Albumin/Globulin [Mass ratio] 1.1 {ratio} 0.9-2.4 [facility] ALP [Catalytic activity/Vol] 78 U/L 45-117 [facility] ALT [Catalytic activity/Vol] 21 U/L 16-61 [facility] CO2 [Moles/Vol] 28.0 mmol/L 21.0-32.0 [facility] Ferritin [Mass/Vol] 111 ng/mL 26-388 [facility] Globulin (S) [Mass/Vol] 4.1 g/dL 2.2-4.2 [facility] Urea nitrogen/Creatinine [Mass ratio] 20.1 mg/mg 10-20 [facility] Laboratory - Hematology and Cell countsOrdered By: Sylvester Calvin on 04-04-2023 MCH (RBC) [Entitic mass] 30.8 pg 27.0-32.0 [facility] MCHC (RBC) [Mass/Vol] 33.9 g/dL 32-36 [facility] Nucleated RBC/100 WBC (Bld) [Ratio] 0 % 0-5 [facility] Platelets (Bld) [#/Vol] 256 10*3/uL 150-450 [facility] No Panel InformationOrdered By: Sylvester Calvin on 04-04-2023 C-Reactive Protein Extended Range < 2.90 mg/L 0.0-3.0 [facility] Comment on above: C-Reactive Protein ( CRP) provides useful information for thediagnosis, therapy and monitoring of inflammatory processesand associated diseases. For the evaluation of Relative Riskfor Cardiovascular Disease, a High Sensitivity CRP (HSCRP)should be ordered. Estimated GFR (MDRD) Amer 126 mL/min >60 [facility] Comment on above: GFR Calc Estimated GFR (MDRD) Non-Af Amer 104 mL/min >60 [facility] Comment on above: Non- GFR Calc Vitamin D 25-Hydroxy 41.4 ng/mL [facility] Comment on above: Vitamin D 25(OH) Sta tus Range Deficiency <20 ng/mL (50nmol/L) Insufficiency 20 - 30 ng/mL (50 - 75 nmol/L) Sufficiency 30 - 100 ng/mL (75 - 250 nmol/L) Toxicity >100 ng/mL (>250 nmol/L) Platelet mean volume Kofi-Ec ker (Bld) [Entitic vol]Ordered By: Sylvester Calvin on 04-04-2023 Platelet mean volume (Bld) [Entitic vol] 10.4 fL 6.2-12.0 [facility] RBC Auto (Bld) [#/Vol]Ordere d By: Sylvester Calvin on 04-04-2023 RBC (Bld) [#/Vol] 4.94 10*6/uL 4.6-6.2 [facility] Serum or plasma calcium terence urement (mass/volume)Ordered By: Sylvester Calvin on 04-04-2023 Calcium [Mass/Vol] 9.6 mg/dL 8.5-10.1 [facility] Serum or plasma creatinine m easurement (mass/volume)Ordered By: Sylvester Calvin on 04-04-2023 Creatinine [Mass/Vol] 0.94 mg/dL 0.70-1.30 [facility] Comment on above: The validity of the calculated GFR & GFRAA in patients over 70 years has not been determined. Clinical correlation is essential. Serum or plasma thyroid stim ulating hormone (TSH) measurement (units/volume)Ordered By: Sylvester Calvin on 04-04-2023 TSH Qn 1.35 uIU/mL 0.358-3.74 [facility] Serum or plasma urea nitroge n measurement (mass/volume)Ordered By: Sylvester Calvin on 04-04-2023 Urea nitrogen [Mass/Vol] 19 mg/dL 7-18 [facility] Testosterone, Serum Totalon 04-04-2023 Testosterone [Mass/Vol] 578.29 ng/dL Normal [facility] Comment on above: Result Comment: CENT RAL 90% REFERENCE RANGES MALE AGE <50 197.44 - 669.58 ng/dL MALE AGE > or = 50 187.72 - 684.19 ng/dL FEMALE AGE <50 8.38 - 35.01 ng/dL FEMALE AGE > or = 50 <7.00 - 35.92 ng/dL Effective as of 09/30/20 Performed By: #### L 503.6150, L503.6550, L101.9900, L501.9520, L500.4050, L3100.7700, L100.0100, L509.3000, L506.1000, L501.6710 #### [facility] [place], [address] Thin prep Papanicolaou smear with manual screeningOrdered By: Sylvester Calvin on 04-04-2023 Thin prep Papanicolaou smear with manual screening 4.6 g/dL 3.2-5.0 [facility] Thin prep Papanicolaou smear with manual screening 18 U/L 15-37 [facility] Thin prep Papanicolaou smear with manual screening 5 5-15 [facility] Thyroid Stim Hormone (TSH)on 04-04-2023 TSH 1.35 uIU/mL Normal 0.358-3.74 [facility] Comment on above: Performed By: #### L 503.6150, L503.6550, L101.9900, L501.9520, L500.4050, L3100.7700, L100.0100, L509.3000, L506.1000, L501.6710 #### [facility] [address] [place], [place], [id number] Vitamin D,25 Hydroxyon 04-04 Vitamin D 25-OH 41.4 ng/mL Normal [facility] Comment on above: Result Comment: Mony min D 25(OH) Status Range Deficiency <20 ng/mL (50nmol/L) Insufficiency 20 - 30 ng/mL (50 - 75 nmol/L) Sufficiency 30 - 100 ng/mL (75 - 250 nmol/L) Toxicity >100 ng/mL (>250 nmol/L) Performed By: #### L 503.6150, L503.6550, L101.9900, L501.9520, L500.4050, L3100.7700, L100.0100, L509.3000, L506.1000, L501.6710 #### [facility] [address] [place], [place], [address] Laboratory - Drug toxicology Ordered By: Sylvester Calvin on 03-29-2023 Amphetamines Ql (U) Negative <1000 ng/mL [facility] Benzodiazepines Ql (U) Negative < 200 ng/mL [facility] Cannabinoids Screen Ql (U) Negative < 50 ng/mL [facility] Cocaine Ql (U) Negative < 300 ng/mL [facility] Opiates Ql (U) Negative < 300 ng/mL [facility] No Panel InformationOrdered By: Sylvester Calvin on 03-29-2023 MDMA (Ecstasy) Screen Negative < 500 ng/mL [facility] Urine Barbiturates Screen Negative < 200 ng/mL [facility] Urine Drug Screen Comment [facility] Comment on above: CONFIRMATORY TESTING FOR ALL POSITIVE URINE DRUG SCREENRESULTS WILL ONLY BE SENT OUT UPON PHYSICIAN ORDER. VISTA Urine Drug Screen methods provide only preliminaryanalytical test results. A more specific alternate chemicalmethod must be used in order to obtain a confirmedanalytical result. Gas chromatography/mass spectrometery(GC/MS) is the preferred confirmatory method. Clinicalconsideration and professional judgement should be appliedto any drug of abuse test result, particularly whenpreliminary positive results are used. URINE TCA TESTING MUST BE ORDERED SEPARATELY. USE TESTMNEMONIC: [facility] Urine Methadone Screen Negative < 300 ng/mL [facility] Urine Drug Screen (VISTA)on 03-29-2023 AMPHETAMINES Negative Normal <1000 ng/mL [facility] Comment on above: Order Comment: Order Date: 03/29/23Order Info: 0819-1 - UDSUNK Performed By: #### L 503.6150, L503.6550, L101.9900, L501.9520, L500.4050, L3100.7700, L100.0100, L509.3000, L506.1000, L501.6710 #### [facility] [address] [place], [place], [id number] BARBITIURATES Negative Normal < 200 ng/mL [facility] Comment on above: Order Comment: Order Date: 03/29/23Order Info: 0819-1 - UDSUNK Performed By: #### L 503.6150, L503.6550, L101.9900, L501.9520, L500.4050, L3100.7700, L100.0100, L509.3000, L506.1000, L501.6710 #### [facility] [address] [place], [place], [phone] BENZODIAZIPINE Negative Normal < 200 ng/mL [facility] Comment on above: Order Comment: Order Date: 03/29/23Order Info: 0819-1 - UDSUNK Performed By: #### L 503.6150, L503.6550, L101.9900, L501.9520, L500.4050, L3100.7700, L100.0100, L509.3000, L506.1000, L501.6710 #### [facility] [address] [place], [address] COCAINE Negative Normal < 300 ng/mL [facility] Comment on above: Order Comment: Order Date: 03/29/23Order Info: 0819- - UDSUNK Performed By: #### L 503.6150, L503.6550, L101.9900, L501.9520, L500.4050, L3100.7700, L100.0100, L509.3000, L506.1000, L501.6710 #### [facility] [address] [place], [address] ECSTACY Negative Normal < 500 ng/mL [facility] Comment on above: Order Comment: Order Date: 03/29/23Order Info: 08 - UDSUNK Performed By: #### L 503.6150, L503.6550, L101.9900, L501.9520, L500.4050, L3100.7700, L100.0100, L509.3000, L506.1000, L501.6710 #### [facility] [address] [place], [address] METHADONE Negative Normal < 300 ng/mL [facility] Comment on above: Order Comment: Order Date: 03/29/23Order Info: 0819 - UDSUNK Performed By: #### L 503.6150, L503.6550, L101.9900, L501.9520, L500.4050, L3100.7700, L100.0100, L509.3000, L506.1000, L501.6710 #### [facility] [address] [place], [address] OPIATES Negative Normal < 300 ng/mL [facility] Comment on above: Order Comment: Order Date: 03/29/23Order Info: 0819 - UDSUNK Performed By: #### L 503.6150, L503.6550, L101.9900, L501.9520, L500.4050, L3100.7700, L100.0100, L509.3000, L506.1000, L501.6710 #### [facility] [address] [place], [address] PCP Negative Normal < 25 ng/mL [facility] Comment on above: Order Comment: Order Date: 03/29/23Order Info: 0819-1 - UDSUNK Performed By: #### L 503.6150, L503.6550, L101.9900, L501.9520, L500.4050, L3100.7700, L100.0100, L509.3000, L506.1000, L501.6710 #### [facility] [address] [place], [address] THC Negative Normal < 50 ng/mL [facility] Comment on above: Order Comment: Order Date: 03/29/23Order Info: 0819-1 - UDSUNK Performed By: #### L 503.6150, L503.6550, L101.9900, L501.9520, L500.4050, L3100.7700, L100.0100, L509.3000, L506.1000, L501.6710 #### [facility] [address] [place], [address] VISTA UDS PH 5 Normal [facility] Comment on above: Order Comment: Order Date: 03/29/23Order Info: 0819-1 - UDSUNK Performed By: #### L 503.6150, L503.6550, L101.9900, L501.9520, L500.4050, L3100.7700, L100.0100, L509.3000, L506.1000, L501.6710 #### [facility] [address] [place], [address] Urine phencyclidine (PCP) de tectionOrdered By: Sylvester Calvin on 03-29-2023 Phencyclidine Ql (U) Negative < 25 ng/mL [facility] Established Visit (Gastroent erology)on 02-19-2021 Established Visit (Gastroenterology) Provider Impressions Rafael is a complex male with underlying depression, IBS and early satiety which is a combination of poor oral intake followed by poor gastric accommodation. I am not opposed to trial of cyproheptadine. Recommend he follow-up closely with our office if he does not feel he is improving would add back Remeron in the next 2 to 3 weeks. As far as his chronic Lyme disease I am not an expert advised him to follow-up with the doctor prescribed the doxycycline for monitoring of his antibody levels. I cautioned them that his antibody levels remain elevated for a long period of time if not lifetime. Current research on Lyme disease indicates that the Bactrim may never fully leave the body and can reactivate in some people. Chief Complaint FUV in office today for weight loss, no appetite, Bm approx every 2-3 days. Not a lot of stress at school. History of Present IllnessRafael is a pleasant 20-year-old white male who underwent endoscopy 4 years ago for recalcitrant heartburn. He is doing well on Protonix. When he went to college today developed acute anxiety with weight loss. Was placed on Remeron at that time and gained weight back. 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 Unfortunately went without treatment as he did not notice the tick bite and then developed disseminated Lyme disease with joint aches and fatigue. He was treated initially with doxycycline for 14 days he did improve but sought treatment to her naturopathic doctor in [place] who ran a host of tests including GI related panel for his IBS and was found to have poor support of normal intestinal niya but no evidence of celiac disease malabsorption pancreatic insufficiency. His Lyme disease panel showed that he had positive Lyme antibodies now converted over to IgG which were still elevated. Since treatment with doxycycline for Lyme disease and then follow-up treatment sulfamethoxazole to cure a bacterial overgrowth problem his appetite is not improved. He admits he feels full with a few bites of food has no desire to eat is eating just makes him feel more lethargic. He denies any weight loss since coming home to live from college but does state he lost 20 pounds over the summer. The naturopathic physician suggested cyproheptadine 4 mg twice daily to stimulate appetite which is not started at this time. He denies any bloating after meals he has remained relatively gluten-free and is avoiding lactose. From a depression point of view he does feel somewhat sad but does not feel hopeless and is not suicidal. He is not opposed to resuming antidepressants but wishes to try the cyproheptadine first. Review of Systems Constitutional: feeling tired and recent 20 pounds over 4 months lb weight loss, but no fever and no chills. ENT: no lymphadenopathy and no nosebleeds. Cardiovascular: no shortness of breath, the heart rate was not slow, the heart rate was not fast, no palpitations, no shortness of breath during exertion and no extremity edema. Respiratory: no cough and no wheezing. Musculoskeletal: no arthralgias, no myalgias, no joint stiffness, no limb pain and no limb swelling. Integumentary: no rashes, no skin lesions, was no jaundiced and no itching. Neurological: no headache, no confusion, no convulsions, no numbness, no fainting, no tingling, no limb weakness and no difficulty walking. All other systems have been reviewed and are negative for complaint. Active Problems Problems Anorexia (783.0) (R63.0) Early satiety (780.94) (R68.81) Nonulcer dyspepsia (536.8) (K30) Family History Mother No pertinent family history Father No pertinent family history Social History Problems Denies alcohol consumption (V49.89) (Z78.9) Does not have living will Never a smoker No caffeine use No illicit drug use Allergies Medication No Known Drug Allergies Recorded By: Milagros Mccray; 03/15/2019 8:18:19 AM Current Meds Medication NameInstruction Cyproheptadine HCl - 4 MG Oral Tablet Pantoprazole Sodium 40 MG Oral Tablet Delayed ReleaseTAKE 1 TABLET DAILY. Vitals Vital Signs Recorded: [id number] 02:24PM Kocjzkcofzw21.6 F Kdaaiajh135 Fomnvoqfy79 Height5 ft 9 in Ttaush386 lb BMI Ugaajjgdfj32.38 kg/m2 BSA Calculated1.76 Physical Exam Constitutional General appearance: In no acute distress . Eyes Anicteric Sclerae . Pulmonary Auscultation of lungs: Clear. Cardiovascular Auscultation of heart: RRR without murmur. Examination of extremities for edema: Normal. Abdomen Soft, non-tender. Bowel sounds normal. No hepatomegaly or splenomegaly. Signatures Electronically signed by : Alex Owens DO; Feb 19 2021 5:00PM EST (Author) Normal [facility] LYME AB BY IMMUNOBLOT, IGG + IGMon 09-29-2020 LYME IGG AB,IMMUNOBLOT Positive Abnormal Negative formerly [facility] Comment on above: Result Comment: Meth odology- Immunoblot Band(s) present: 93, 66, 58, 41, 39, 30, 28, 23, 18 kDa INTERPRETIVE INFORMATION: B. burgdorferi IgG Immunoblot For this assay, a positive result is reported when any 5 or more of the following 10 bands are present: 18, 23, 28, 30, 39, 41, 45, 58, 66, or 93 kDa. All other banding patterns are reported as negative. Performed By: [facility] [address] [place] [address] Soda Worker: Jazmyn Brown MD Performed By: #### L YWB5 #### [place] [address] LYME IGM AB,IMMUNOBLOT Positive Abnormal Negative formerly [facility] Comment on above: Result Comment: Meth odology- Immunoblot Band(s) present: 41, 39, 23 kDa INTERPRETIVE INFORMATION: B. burgdorferi Antibody IgM Immunoblot For this assay, a positive result is reported when any 2 or more of the following bands are present: 23, 39, or 41 kDa. All other banding patterns are reported as negative. Performed By: [facility] [address] [place] [address] Soda Worker: Jazmyn Brown MD Performed By: #### L YWB5 #### [place] [address] LYME AB SCREEN + REFLEX TO I MMUNOBLOT; <4 WKS POST SYMPTOMSon 09-29-2020 LYME ANTIBODIES SCREEN 3.22 PRISCILA High 0.00-1.20 formerly [facility] Comment on above: Result Comment: Borr solomon burgdorferi Antibodies, IgG and IgM by Immunoblot to follow. INTERPRETIVE INFORMATION: Borrelia Burgdorferi Abs,Total by ROSA 0.99 PRISCILA or Less: ...... Negative: Antibody to B. burgdorferi not detected. 1.00 - 1.20 PRISCILA......... Equivocal: Repeat testing in 10-14 days may be helpful. 1.21 PRISCILA or Greater: ... Positive: Probable presence of antibody to B. burgdorferi detected. Performed By: [facility] [address] [place] [address] Soda Worker: Jazmyn Brown MD Performed By: #### L YMED #### [facility] [address] [place] [address] CORONAVIRUS 2019 BY PCRon SARS-CoV-2 (COVID-19) RNA LANA+probe Ql (Unsp spec) Not detected Normal Not Detected [facility] Comment on above: Result Comment: . This assay is designed to detect the N, ORF1ab and/or S genes of SARS-CoV-2 via nucleic acid amplification. A Negative (NOT DETECTED) result does not preclude 2019-nCoV infection since the adequacy of sample collection and/or low viral burden may result in presence of viral nucleic acids below the clinical sensitivity of this test method. Negative (NOT DETECTED) result should not be used as the sole basis for treatment or other patient management decisions. Rather negative results should be combined with clinical observations, patient history, and epidemiological information to make patient management decisions. Fact sheet for providers: https://www.fda.gov/media/305287/download Fact sheet for patients: https://www.fda.gov/media/582064/download This test has received FDA Emergency Use Authorization (EUA) and has been verified by [facility] ([facility]). This test is only authorized for the duration of time that circumstances exist to justify the authorization of the emergency use of in vitro diagnostic tests for the detection of SARS-CoV-2 virus and/or diagnosis of COVID-19 infection under section 564(b)(1) of the Act, 21 U.S.C. 360bbb-3(b)(1), unless the authorization is terminated or revoked sooner. [facility] is certified under CLIA-88 as qualified to perform high complexity testing. Testing is performed in the [facility] laboratories located [place] [address] [place] [address]. Performed By: #### C OV19 ####[id number] [place] [address] Covid 19 Resultson 07-23-202 1 SARS-CoV-2 (COVID-19) RNA LANA+probe Ql (Unsp spec) NEGATIVE COVID-19 Test Coronaviruses are common world-wide and are the cause of many common colds. SARS-COV2 is a new coronavirus that began circulating worldwide in 2019 so we are calling it COVID-19. It has been estimated that four out of five patients with COVID-19 will recover at home without the need for medical attention. Symptoms of COVID-19 may include cough, fever, shortness of breath, loss of taste or smell and other flu-like symptoms including chills, sore muscles, sore throat, and headache. Severe illness is more common in older people and people with other health problems such as high blood pressure, obesity, and immune system problems. If the test is positive, you have COVID-19. You will be contacted by the ordering physicians office and instructed to remain on home isolation, in accordance with CDC guidelines. You may also be contacted by the [facility] to see if any of your close contacts may have been exposed to the virus and need to quarantine. If the test is negative, you likely do not have COVID-19 at this time, but you still may have a different illness that can spread to other people (like Influenza, or the Flu) and could still be at risk for getting COVID-19. We recommend that you stay away from other people to limit the spread of illness until your symptoms are improving and you are fever-free for 24 hours without the use of fever lowering medications such as acetaminophen or ibuprofen. No test is 100% accurate so if you are still concerned you may have COVID-19, talk to your doctor about the need to continue to stay away from others. Medicines Unless your provider told you not to use the following: Acetaminophen (Tylenol and others) is generally safe. Anti-inflammatory medications, such as Ibuprofen (Advil or Motrin) or Naproxen (Aleve) can also be used. Vkww-rqe-coozjzv cough and cold medicines can be used according to the instructions on the package. Some crqo-idv-rbxcsxf medicines also contain acetaminophen. Make sure you are not taking more than your recommended dose. For those not hospitalized, there is no specific treatment available for this illness. Antibiotics do not treat Coronaviruses. Follow-Up Follow up with your doctor by scheduling a virtual visit or consider follow-up at one of our urgent care fever clinics. If you are having difficulty breathing, or are very weak and having difficulty standing, this is a medical emergency. Call 911 or have someone take you to the nearest emergency room immediately. If possible, wear a facemask. Additional guidance from the CDC for patients who tested POSITIVE for COVID-19 How to isolate: Isolate yourself in a specific room at home and limit your contact with others. Use a separate bathroom from other members of the household, when possible. Leave home only to get essential medical care. Do not go to work, school or public areas. Avoid using public transportation, ride-sharing, or taxis. Restrict contact with pets and other animals. If you must care for your pet or be around animals while you are sick, wash your hands before and after your interaction and wear a facemask. Make sure that shared spaces in the home have good airflow, such as by an air conditioner or an opened window, weather permitting. Personal Hygiene Procedures: Wear a face mask when in the same room as other people or pets. If a face mask interferes with your breathing, others should wear a mask when sharing space with you. Frequent hand-washing: wash your hands with soap and water for at least 20 seconds. If soap and water are not available, use alcohol-based hand boatswains mate. Avoid touching your eyes, nose, and mouth with unwashed hands. Household Hygiene Procedures: Avoid sharing personal household items such as dishes, glassware, cups, eating utensils, towels or bedding with other people or pets in your home. After use, these items should be washed with soap and hot water. Disinfect all high-touch surfaces every day with antibacterial cleaning solutions such as Lysol wipes, bleach, cleansers, etc. High-touch surfaces include tabletops, doorknobs, bathroom fixtures, toilets, phones, keyboards, tablets and bedside tables. Immediately clean any surfaces that may have blood, poop or body fluids on them, using antibacterial cleaning solutions such as Lysol wipes, bleach, cleansers, etc. If clothing or bedding come into contact with blood, poop or body fluids, they should be washed immediately. Follow the directions on the laundry detergent and clothing labels but hot water is recommended when possible. Stopping home isolation precautions: If possible, consult your doctor before stopping home isolation precautions. According to the [facility], you can discontinue home isolation precautions when you have met both of these criteria: Your fever and respiratory symptoms have been gone for 24 trey (more content not included)... Normal [facility] CBC AND DIFFERENTIALon 09-25 Erythrocyte distribution width (RBC) [Ratio] 12.3 % Normal 11.5 - 14.5 [facility] Comment on above: Performed By: #### C BCDF #### [place] [id number] Hematocrit (Bld) [Volume fraction] 43.9 % Normal 41.0 - 52.0 [facility] Comment on above: Performed By: #### C BCDF #### [place] [id number] Hemoglobin (Bld) [Mass/Vol] 14.7 g/dL Normal 13.5 - 17.5 [facility] Comment on above: Performed By: #### C BCDF #### [place] [id number] MCHC (RBC) [Mass/Vol] 33.4 g/dL Normal 32.0 - 36.0 formerly [facility] Comment on above: Performed By: #### C BCDF #### [address] [address] MCV (RBC) [Entitic vol] 92 fL Normal 80 - 100 [facility] Comment on above: Performed By: #### C BCDF #### [address] [address] NUCLEATED RBC 0.2 /100 WBC Normal [facility] Comment on above: Performed By: #### C BCDF #### [address] [address] Platelets (Bld) [#/Vol] 308 10*3/uL Normal 150 - 450 [facility] Comment on above: Performed By: #### C BCDF #### [address] [address] RBC 4.76 x10E12/L Normal 4.50 - 5.90 [facility] Comment on above: Performed By: #### C BCDF #### [address] [address] WBC (Bld) [#/Vol] 7.8 10*3/uL Normal 4.4 - 11.3 [facility] Comment on above: Performed By: #### C BCDF #### [place] [address] DIFFERENTIAL SEE MANUAL DIFF Normal [facility] Comment on above: Performed By: #### C BCDF #### [place] [address] COMPREHENSIVE PANELon 2020 Albumin [Mass/Vol] 4.5 g/dL Normal 3.4 - 5.0 [facility] Comment on above: Performed By: #### C MP #### [place] [address] ALP [Catalytic activity/Vol] 81 U/L Normal 33 - 120 [facility] Comment on above: Performed By: #### C MP #### [address] [address] ALT [Catalytic activity/Vol] 14 U/L Normal 10 - 52 [facility] Comment on above: Result Comment: Leslye ents treated with Sulfasalazine may generate falsely decreased results for ALT. Performed By: #### C MP #### [address] [address] Anion gap [Moles/Vol] 10 mmol/L Normal 10 - 20 [facility] Comment on above: Performed By: #### C MP #### [address] [address] AST [Catalytic activity/Vol] 20 U/L Normal 9 - 39 [facility] Comment on above: Performed By: #### C MP #### [address] [address] Bilirubin [Mass/Vol] 1.1 mg/dL Normal 0.0 - 1.2 [facility] Comment on above: Performed By: #### C MP #### [address] [address] Calcium [Mass/Vol] 9.7 mg/dL Normal 8.6 - 10.3 [facility] Comment on above: Performed By: #### C MP #### [address] [address] Chloride [Moles/Vol] 99 mmol/L Normal 98 - 107 [facility] Comment on above: Performed By: #### C MP #### [address] [address] Creatinine [Mass/Vol] 0.88 mg/dL Normal 0.50 - 1.30 formerly [facility] Comment on above: Performed By: #### C MP #### [address] [address] GFR- AM. >60 Normal >60 [facility] Comment on above: Result Comment: CALC ULATIONS OF ESTIMATED GFR ARE PERFORMED USING THE MDRD STUDY EQUATION FOR THE IDMS-TRACEABLE CREATININE METHODS. CLIN CHEM 2007;53:766-72 Performed By: #### C MP #### [address] [address] GFR-NON AM. >60 Normal >60 [facility] Comment on above: Performed By: #### C MP #### [address] [address] Glucose [Mass/Vol] 81 mg/dL Normal 74 - 99 [facility] Comment on above: Performed By: #### C MP #### [address] [address] HCO3 (Bld) [Moles/Vol] 30 mmol/L Normal 21 - 32 [facility] Comment on above: Performed By: #### C MP #### [address] [address] Potassium [Moles/Vol] 4.4 mmol/L Normal 3.5 - 5.3 [facility] Comment on above: Performed By: #### C MP #### [address] [address] Protein [Mass/Vol] 9.1 g/dL High 6.4 - 8.2 [facility] Comment on above: Performed By: #### C MP #### [address] [address] Sodium [Moles/Vol] 135 mmol/L Low 136 - 145 [facility] Comment on above: Performed By: #### C MP #### [address] [address] Urea nitrogen [Mass/Vol] 15 mg/dL Normal 6 - 23 [facility] Comment on above: Performed By: #### C MP #### [address] [address] CORONAVIRUS 2019 BY PCRon DATE OF SYMPTOM ONSET [YYYYMMDD]? 20200904 Normal [facility] Comment on above: Performed By: #### C OV19 ####[id number] [place] [address] Lab Specimen Source Nasal, Nasopharyngeal Normal [facility] Comment on above: Performed By: #### C OV19 ####[id number] [place] [address] EBV SCREEN (VCA IGG/IGM)on 0 09-25-2020 VCA IGG ANTIBODY Canceled Normal [facility] Comment on above: Order Comment: TEST EBV SCREEN (VCA IGG/IGM) WAS CANCELLED, 09/25/2020 13:49 Performed By: #### E BVSC #### [facility] [address] [place] [address] VCA IGM ANTIBODY Canceled Normal [facility] Comment on above: Order Comment: TEST EBV SCREEN (VCA IGG/IGM) WAS CANCELLED, 09/25/2020 13:49 Performed By: #### E BVSC #### [facility] [address] [place] [address] HETEROPHILE ANTIBODYon 09-25 HETEROPHILE ANTIBODY Negative Normal NEGATIVE [facility] Comment on above: Performed By: #### H ETER #### [address] [address] MANUAL DIFFERENTIALon 2020 ANC 6.71 x10E9/L Normal 1.20 - 7.70 [facility] Comment on above: Performed By: #### M DIFF #### [address] [address] BASOPHIL 0.00 x10E9/L Normal 0.00 - 0.10 [facility] Comment on above: Performed By: #### M DIFF #### [address] [address] EOSINOPHIL 0.16 x10E9/L Normal 0.00 - 0.70 [facility] Comment on above: Performed By: #### M DIFF #### [address] [address] LYMPHOCYTE 0.70 x10E9/L Low 1.20 - 4.80 [facility] Comment on above: Performed By: #### M DIFF #### [address] [address] MONOCYTE 0.23 x10E9/L Normal 0.10 - 1.00 [facility] Comment on above: Performed By: #### M DIFF #### [address] [address] SEG NEUTROPHIL 6.71 x10E9/L Normal 1.20 - 7.00 [facility] Comment on above: Performed By: #### M DIFF #### [address] [address] % BASOPHIL 0.0 % Normal 0.0 - 2.0 [facility] Comment on above: Performed By: #### M DIFF #### [address] [address] % EOSINOPHIL 2.0 % Normal 0.0 - 6.0 [facility] Comment on above: Performed By: #### M DIFF #### [address] [address] % LYMPHOCYTE 9.0 % Normal 13.0 - 44.0 [facility] Comment on above: Performed By: #### M DIFF #### [address] [address] % MONOCYTE 3.0 % Normal 2.0 - 10.0 [facility] Comment on above: Performed By: #### M DIFF #### [address] [address] % SEG NEUTROPHIL 86.0 % Normal 40.0 - 80.0 [facility] Comment on above: Result Comment: Perc ent differential counts (%) should be interpreted in the context of the absolute cell counts (cells/L). Performed By: #### M DIFF #### [address] [address] Provider Note - ED v2on 09-05 Provider Note - ED v2 Provider Note - ED v2: Chart Review HISTORY OF PRESENTING ILLNESS RAFAEL is a 19 year old Male and was seen by me at 25-Sep-2020 13:24. The historian is the patient. Triage Information: Most recent Vital Sign Value Date PAST MEDICAL HISTORY ATTESTATION: I have reviewed and confirmed nurse's/medic's notes for patient's medications, allergies, and medical, surgical, family and social history ALLERGIES/INTOLERANCES: No Known Allergies HEALTH HISTORY: Reports follows with GI for management of Mirtazapine/decreased appetite x 1.5 years. No other known health issues. Family history: no pertinent history. Social history: Denies tobacco/ETOH/drug use. Currently employed - works at a summer camp. OUTPATIENT MEDICATIONS: Home Medications Review Status for Reconciliation: Complete Med Status: Patient Currently Takes Medications Drug Name: mirtazapine 7.5 mg oral tablet Instructions: 1 tab(s) orally once a day SIGNIFICANT EVENTS: Other Description:NON SMOKER Additional Notes:09/2020 Past Medical History Description:NO CHRONIC HEALTH ISSUES Additional Notes:09/2020 Past Surgical History Description:NO SURGICAL HISTORY THIS YEAR Additional Notes:09/2020 No known significant events or known past surgical history. RESULTS/VITAL SIGNS VITAL SIGNS: T PRBP SpO2O2(LPM) %FiO2 Method 25-Sep-2020 13:07:[id number] 3 100 MEDICAL DECISION MAKING/ED COURSE MDM/ED COURSE: This note was generated with voice recognition software and may contain errors including spelling, grammar, syntax, and misrecognization of what was dictated CHIEF COMPLAINT fatigue, body aches HISTORY OF PRESENT ILLNESS Patient presents today with complaints of extreme fatigue and generalized body aches - reports first noticed sxs 3-4 weeks ago, but sxs have gotten a lot worse over the past 2 weeks - took work off the past week d/t symptoms. The past few days, he has also had a subjective fever and mild nausea (no emesis). He follows with GI re: ongoing poor appetite x 1.5 years - currently taking Remeron but left the bottle at a friend's house so has not taken it for a few days, and has noticed his appetite is worse than usual. He denies any chills, recent illness, cough, runny nose/congestion, sore throat, ear pain, headaches, dizziness, weakness, abdominal pain, chest pain, palpitations, wheezing/shortness of breath, urinary symptoms, rashes, and diarrhea. Reports believes he could be a little dehydrated because of his decreased appetite, but is able to drink fluids without difficulty; denies any loss of sense of taste or smell. Reports has been a little difficult to sleep d/t body aches, but typically gets 7-8 hrs of sleep nightly. Is requesting testing for Lyme Disease - works at a summer camp and saw a tick crawling on his legs a few weeks ago, so wonders if he may have gotten bit at some point, although denies any known insect bites. Denies any issues with anxiety/depression. Has not tried any nbsd-pxp-uwlryxb medications or home remedies for symptom management. No known ill contacts. Has not received the COVID-19 vaccine, and has never had COVID-19, to his knowledge. No known health issues aside from GI issues. REVIEW OF SYSTEMS 10 systems reviewed negative with exception of history of present illness listed above PHYSICAL EXAMINATION General: Mildly ill-appearing, well nourished male; alert and oriented; in no acute distress. Sitting comfortably on exam table. Non-dyspneic. Eyes: Pupils equal, round and reactive to light. No conjunctival erythema; no scleral icterus. HENT: No frontal or maxillary sinus tenderness; no audible nasal congestion. Airway patent, TMs and ear canals clear bilaterally. Nasal mucosa unremarkable. Oral mucosa moist. Posterior pharynx unremarkable; no vesicles or oropharyngeal exudate. Uvula is midline. Neck: Supple. No palpable lymphadenopathy; no obvious thyromegaly. Respiratory: Respirations easy and unlabored, Breath sounds equal. Lungs are clear to auscultation; no wheezes, rhonchi, or rales. No cough noted during visit. Non-dyspneic with ambulation. Cardiovascular: Normal rate, Regular rhythm. Normal S1S2. No m/r/g. Gastrointestinal: Soft, non-tender, non-distended; no palpable masses or organomegaly. Bowel sounds normoactive. Musculoskeletal: Grossly normal; appropriate for age. Gait unremarkable; able to move all extremities without difficulty. No joint swelling, erythema, or evidence of synovitis. Integumentary: [place], warm, dry, and Intact. No rashes or skin discoloration appreciated. Good skin turgor Neurologic: Alert and oriented, no focal deficits. workflow developer 2-12 grossly intact. Cognition and Speech: Oriented, Speech clear and coherent. Psychiatric: Cooperative, Appropriate mood & affect. MEDICAL DECISION MAKING Course: Worsening; stable. Impression/Plan: Unclear etiolo (more content not included)... Normal [facility] RED CELL MORPHOLOGYon 2020 RBC morphology finding Nom (Bld) NORMAL Normal [facility] Comment on above: Performed By: #### M ORP2 #### [address] [address] [place] Teston 11-04-2018 [place] Test Negative Normal Negative [facility] Comment on above: Performed By: #### 8 [id number] #### BARBY Misc Micro SubSection , Lab Miscellaneouson 10-26-19 19 Status See Ref Lab Report Normal [facility] Comment on above: Order Comment: Anti tissue transglutaminase, anti gliaden antibldy, anti endomysial antibody Performed By: #### 1 [id number] #### BARBY Send Outs Subsection [facility] [place] [address] Auto Diffon 10-20-2018 Basophils (Bld) [#/Vol] 0.0 E3/mcL Normal 0.0-0.2 [facility] Comment on above: Order Comment: Order Added by Discern Expert. Performed By: #### 2 [id number] #### BARBY [address] [place] [address] Basophils/100 WBC (Bld) 0.5 % Normal 0.0-2.0 [facility] Comment on above: Order Comment: Order Added by Discern Expert. Performed By: #### 2 [id number] #### BARBY [address] [place] [address] Eos Absolute 0.1 E3/mcL Normal 0.0-0.7 [facility] Comment on above: Order Comment: Order Added by Discern Expert. Performed By: #### 2 [id number] #### BARBY [address] [place] [address] Eosinophils/100 WBC (Bld) 1.2 % Normal 0.0-11.0 [facility] Comment on above: Order Comment: Order Added by Discern Expert. Performed By: #### 2 [id number] #### BARBY [address] [place] [address] Lymphocytes (Bld) [#/Vol] 1.3 E3/mcL Normal 1.2-3.4 [facility] Comment on above: Order Comment: Order Added by Discern Expert. Performed By: #### 2 [id number] #### BARBY [address] [place] [address] Lymphocytes/100 WBC (Bld) 21.5 % Normal 20.0-55.0 [facility] Comment on above: Order Comment: Order Added by Discern Expert. Performed By: #### 2 [id number] #### BARBY [address] [place] [address] [place] Absolute 0.4 E3/mcL Normal 0.0-0.7 [facility] Comment on above: Order Comment: Order Added by Discern Expert. Performed By: #### 2 [id number] #### BARBY [address] [place] [address] Monocytes/100 WBC (Bld) 7.1 % Normal 0.0-10.0 [facility] Comment on above: Order Comment: Order Added by Discern Expert. Performed By: #### 2 [id number] #### BARBY [address] [place] [address] Neutro Absolute 4.1 E3/mcL Normal 1.4-6.5 [facility] Comment on above: Order Comment: Order Added by Discern Expert. Performed By: #### 2 [id number] #### BARBY [address] [place] [address] Neutro Auto 69.7 % Normal 37.0-75.0 [facility] Comment on above: Order Comment: Order Added by Discern Expert. Performed By: #### 2 [id number] #### BARBY [address] [place] [address] CBC w/ Auto Diffon 9 Erythrocyte distribution width (RBC) [Ratio] 12.2 % Normal 11.5-14.5 [facility] Comment on above: Performed By: #### 2 [id number] #### BARBY RemHemo [facility] [place] [address] Hematocrit (Bld) [Volume fraction] 41.1 % Low 42.0-52.0 [facility] Comment on above: Performed By: #### 2 [id number] #### BARBY CurranHemo [facility] [place] [address] Hemoglobin (Bld) [Mass/Vol] 14.1 g/dL Normal 13.5-18.0 [facility] Comment on above: Performed By: #### 2 [id number] #### BARBY [address] [place] [address] MCH (RBC) [Entitic mass] 31.7 pg High 27.0-31.0 [facility] Comment on above: Performed By: #### 2 [id number] #### BARBY [address] [place] [address] MCHC (RBC) [Mass/Vol] 34.3 g/dL Normal 33.0-37.[address] [facility] Comment on above: Performed By: #### 2 [id number] #### BARBY [address] [place] [address] MCV (RBC) [Entitic vol] 92.6 fL Normal 78.0-100.0 [facility] Comment on above: Performed By: #### 2 [id number] #### BARBY [address] [place] [address] Platelet mean volume (Bld) [Entitic vol] 9.8 fL Normal 7.4-11.0 [facility] Comment on above: Performed By: #### 2 [id number] #### BARBY [address] [place] [address] Platelets (Bld) [#/Vol] 263 E3/mcL Normal 130-400 [facility] Comment on above: Performed By: #### 2 [id number] #### BARBY RemHemo [facility] [place] [address] RBC (Bld) [#/Vol] 4.44 E6/mcL Normal 3.90-6.10 [facility] Comment on above: Performed By: #### 2 [id number] #### BARBY RemHemo [address] [place] [address] WBC (Bld) [#/Vol] 5.9 E3/mcL Normal 3.6-11.0 [facility] Comment on above: Performed By: #### 2 [id number] #### BARBY RemHemo [address] [place] [address] CMPon 10-20-2018 Albumin [Mass/Vol] 5.1 g/dL High 3.4-5.0 [facility] Comment on above: Performed By: #### 2 [id number] #### [facility] [employer] [address] [place] [address] Albumin/Globulin [Mass ratio] 1.8 {ratio} Normal 1.1-1.9 [facility] Comment on above: Performed By: #### 2 [id number] #### [facility] [employer] [address] [place] [address] Alk Phos 66 Int._Unit/L Normal 33-120 [facility] Comment on above: Performed By: #### 2 [id number] #### BARBY [employer] [address] [place] [address] ALT [Catalytic activity/Vol] 12 Int._Unit/L Normal 10-52 [facility] Comment on above: Performed By: #### 2 [id number] #### BARBY [employer] [address] [place], [place] [id number] Anion gap [Moles/Vol] 12 mmol/L Normal 10-[address] [facility] Comment on above: Performed By: #### 2 [id number] #### [facility] [employer] [address] [place] [address] 21599 AST [Catalytic activity/Vol] 15 Int._Unit/L Normal 9-39 [facility] Comment on above: Performed By: #### 2 [id number] #### [facility] [employer] [address] [place] [address] 75594 Bili Total 2.36 mg/dL High 0.00-1.20 [facility] Comment on above: Performed By: #### 2 [id number] #### [facility] [employer] [address] [place], [place] [id number] Calcium [Mass/Vol] 10.0 mg/dL Normal 8.5-10.7 [facility] Comment on above: Performed By: #### 2 [id number] #### [facility] [employer] [address] [place] [address] Chloride [Moles/Vol] 103 mmol/L Normal 98-107 [facility] Comment on above: Performed By: #### 2 [id number] #### [facility] [employer] [address] [place] [address] CO2 [Moles/Vol] 27.0 mmol/L Normal 21.0-32.0 [facility] Comment on above: Performed By: #### 2 [id number] #### [facility] [employer] [address] [place], [place] [address] Creatinine [Mass/Vol] 0.9 mg/dL Normal 0.5-1.[address] [facility] Comment on above: Performed By: #### 2 [id number] #### [facility] [employer] [address] [place] [address] 38172 Globulin (S) [Mass/Vol] 3.0 g/dL Normal 2.0-4.0 [facility] Comment on above: Performed By: #### 2 [id number] #### [facility] [employer] [address] [place] [address] 27336 Glucose [Mass/Vol] 80 mg/dL Normal 70-99 [facility] Comment on above: Performed By: #### 2 [id number] #### [facility] [employer] [address] [place] [address] 73209 Potassium [Moles/Vol] 4.3 mmol/L Normal 3.5-5.[address] [facility] Comment on above: Performed By: #### 2 [id number] #### [facility] [employer] [facility] [place] [address] Protein [Mass/Vol] 8.0 g/dL Normal 6.4-8.2 [facility] Comment on above: Performed By: #### 2 [id number] #### [facility] [employer] [address] [place], [place] [address] Sodium [Moles/Vol] 138 mmol/L Normal 136-145 [facility] Comment on above: Performed By: #### 2 [id number] #### [facility] [employer] [address] [place], [place] [address] Urea nitrogen [Mass/Vol] 17 mg/dL Normal 6-23 [facility] Comment on above: Performed By: #### 2 [id number] #### [facility] [employer] [address] [place] [address] Urea nitrogen/Creatinine [Mass ratio] 18.9 ratio Normal 5.4-30.0 [facility] Comment on above: Performed By: #### 2 [id number] #### [facility] [employer] [address] [place] [address] CRPon 10-20-2018 CRP [Mass/Vol] 0.24 mg/dL Normal 0.00-1.00 [facility] Comment on above: Performed By: #### 2 [id number] #### [facility] [employer] [address] [place] [address] Lab Miscellaneouson 10-21-19 19 Test Name celiac panel Normal [facility] Comment on above: Order Comment: Anti tissue transglutaminase, anti gliaden antibldy, anti endomysial antibody Performed By: #### 1 [id number] #### [facility] [employer] [address] [place] [address]696 Morphon 10-20-2018 RBC morphology finding Nom (Bld) NORMAL Normal [facility] Comment on above: Order Comment: Order Added by Discern Expert. Performed By: #### 1 [id number] #### [facility] [employer] [address] [place] [address] 87497 eGFRon 10-20-2018 GFR/1.73 sq M predicted among non-blacks MDRD (S/P/Bld) [Vol rate/Area] mL/min/{1.73_m2} Normal [facility] Comment on above: Order Comment: Order added by Discern Expert. Performed By: #### 1 [id number] #### [facility] [employer] [facility] [place] [address] anatdanae lopezon 10-20-2018 Platelet morphology finding Nom (Bld) NORMAL [facility] Comment on above: Performed By: #### 9 [id number] #### [facility] [employer] [facility] [place] [address] Platelets (Bld) [#/Vol] NORMAL Normal [facility] Comment on above: Performed By: #### 9 [id number] #### [facility] [employer] [facility] [place] [address] Vital Signs Date Time Vital Sign Value Performing Clinician Facility 09-25-2020 15:07-0400 Body height 177.8 cm Priscilla Dang Other Phone: [facility] 09-25-2020 15:07-0400 Body temperature 98.96 [degF] Priscilla Dang Other Phone: [facility] 09-25-2020 15:07-0400 Diastolic blood pressure 73 mm[Hg] Priscilla Dang Other Phone: [facility] 09-25-2020 15:07-0400 Heart rate 104 /min Priscilla Dang Other Phone: [facility] 09-25-2020 15:07-0400 Respiratory rate 20 /min Priscilla Dang Other Phone: [facility] 09-25-2020 15:07-0400 SaO2% (BldA) [Mass fraction] 100 % Priscilla Dang Other Phone: [facility] 09-25-2020 15:07-0400 Systolic blood pressure 121 mm[Hg] Priscilla Dang Other Phone: [facility] Encounters Encounter Date Encounter Type Care Provider Facility Start: 05-10-2023 End: 05-10-2023 Patient encounter procedure [facility] Work Phone: Start: 05-10-2023 End: 05-10-2023 ambulatory Sylvester Calvin [facility] Work Phone: Start: 05-09-2023 End: 05-09-2023 Patient encounter procedure [facility] Work Phone: Start: 05-09-2023 End: 05-09-2023 ambulatory Sylvester Calvin Facility:[facility] Start: 04-04-2023 End: 04-04-2023 [facility] Work Phone: Start: 04-04-2023 End: 04-04-2023 Patient encounter procedure [facility] Work Phone: Start: 03-29-2023 End: 03-29-2023 Patient encounter procedure [facility] Work Phone: Start: 03-29-2023 End: 03-29-2023 [facility] Work Phone: Start: 09-25-2020 End: 09-25-2020 Emergency department patient visit Siri Rolan [facility] Start: 11-09-2017 End: 11-10-2017 Patient encounter PRISCILLA SENA [facility] Payers Date Payer Category Payer Self-pay 2023 Unknown [id number] Unknown [employer] [place] Unknown [id number] Unknown [id number] Unknown [id number] Unknown [id number] Social History Date Type Detail Facility Assertion Unknown if ever smoked [facility] Work Phone: Tobacco smoking consumption unknown [facility] Start: 2000 Sex Assigned At Male [facility] Functional Status Date Assessment Result Facility NEGATED: Highlighted row Functional performance Functional status health issues are not documented Disease [facility] Work Phone: Mental Status Date Assessment Result Facility NEGATED: Highlighted row Cognitive function [Interpretation] Cognitive status health issues are not documented Disease [facility] Work Phone: Evaluation note Note Date & Type Note Facility Evaluation note No assessment information availa ble [facility] Work Phone: Summary Purpose Family History No Family History Records FoundNo Family History Records FoundNo Family History Records FoundNo Family History Records FoundNo Family History Records Found Advance Directives No Advanced Directives Records FoundNo Advanced Directives Records FoundNo Advanced Directives Records FoundNo Advanced Directives Records FoundNo Advanced Directives Records Found Chief Complaint and Reason for Visit Chief Complaint EORDER- URINE Chief Complaint EORDER- URINE NEED ORDER Chief Complaint EORDER- URINE NEED ORDER NEED ORDER STOOL Additional Source Comments (unrecognized sect ion and content) No Status Records FoundNo Status Records FoundNo Status Records FoundNo Status Records FoundNo Status Records Found INFORMATION SOURCE (unrecogn ized section and content) DATE CREATED AUTHOR 11/26/2017 [facility] DATE CREATED AUTHOR AUTHOR'S ORGANIZ ATION 11/06/2018 [facility] DATE CREATED AUTHOR AUTHOR'S ORGANIZ ATION 09/30/2020 [facility] DATE CREATED AUTHOR AUTHOR'S ORGANIZ ATION 02/20/2021 [employer] DATE CREATED AUTHOR AUTHOR'S ORGANIZ ATION 05/16/2023 [facility] <item> Privacy Markings (unrecogniz ed section and content) Section Author: Neema Vo PROHIBITION ON REDISCLOSURE OF CONFIDENTIAL INFORMATION This notice accompanies a disclosure of information concerning a client made to you with the consent of such client. Care Teams (unrecognized sec tion and content) Team Status: Active Member Role Status Dates Dr. Sylvester Calvin MD Primary Care Provider Activ e Team Status: Inactive Member Role Status Dates Dr. Sylvester Calvin MD Primary Care Provider, Attending Provider, Referring Provider Active Goals (unrecognized section and content) Goals may be documented in a n alternate sectionGoals may be documented in an alternate sectionGoals may be documented in an alternate section FOR RECORDS PERTAINING TO PATIENTS WHO ARE [...] BE BASED ON THE PRIMARY CLINICAL RECORDS. [employer] [facility]. provides no warranty or guarantee of the accuracy or completeness of information in this document.
[2025-02-15 23:28] LABS: Red Blood Cells-Urine 0 SEEN /hpf (0-5); Squamous Epithelial Cells - UA 0 SEEN /hpf (0-5)
[2025-02-15] MEDS: 0.9% Normal Saline (1000mL) 1,000 ML 1000 ML IV (23:28)
[2025-02-15 23:29] LABS: Color, Urine Yellow (Yellow); Glucose, Dipstick Normal (Normal); Leukocyte Esterase-Dipstick Negative /ul (Negative); Nitrite-Dipstick Negative (Negative); Occult Blood-Urine Negative /ul (Negative); Protein-Dipstick 30 mg/dl (Negative); Specific Gravity, Urine 1.025 (1.002-1.030); Urine Bilirubin Dipstick Negative (Negative)
[2025-02-15 23:36] LABS: Hematocrit 42.4 % (40-54); Hemoglobin 14.9 g/dL (13.0-16.5); Immature Granulocytes Count 0.010 X10^3/uL (0.0-0.0); Mean Corp Hgb Conc 35.1 g/dL (32-36); Mean Corpuscular Volume 87.2 fL (80-94); Mean Platelet Vol. 10.5 fl (6.2-12.0); NRBC Flagged by Analyzer 0 % (0-5); Platelet Count 238 K/mm3 (150-450); RBC Distribution Width CV 12.0 % (11.6-14.6); RBC Distribution Width SD 37.9 fl (35.1-43.9); Red Blood Count 4.86 M/mm3 (4.6-6.2); White Blood Count 4.4 K/mm3 (4.4-11.0)
[2025-02-15 23:47] LABS: Ketone-Dipstick 150 mg/dl (Negative)
[2025-02-16 00:05] LABS: Calcium Oxalate Crystals Ur 1+ /hpf (<or=2+); Mucous, Urine 3+ /hpf (<or=2+)
--- NOTE | 2025-02-16 00:09 | EX.ED.DYSGE1 ---
HPI History of Present Illness Chief Complaint: Anxiety Narrative Narrative: Patient was seen and examined after presenting to ED for feeling anxious after eating beef tonight. Patient does report a 20 pound weight loss however in the last month states that he is very fatigued dad mentions that patient is being treated for chronic Lyme disease. [facility] Medical History Lyme disease Allergy/AdvReac Type Severity Reaction Status Date / Time No Known Allergies Allergy Verified 02/15/25 22:47 Social History Smoking Status: Never smoker ROS ROS ED ROS Narrative Pertinent Positives: 20 pound weight loss in the last month feeling nauseous after eating beef tonight fatigue Pertinent Negatives: Chest pain pressure shortness of breath fevers chills night sweats vomiting diarrhea bony pain The remainder of review of systems negative unless otherwise stated in the HPI above. Systems reviewed including constitutional, psychiatric, cardiovascular, respiratory, integument, HENT, gastrointestinal. EXAM Physical Exam Narrative Exam Narrative: Patient is afebrile hemodynamically stable does not appear toxic or in distress he does appear to be somewhat thin. Normal heart and lung sounds abdomen is soft nontender nondistended no palpable pulsatile mass no lower extremity edema or calf tenderness he has intact and equal MSPs in both extremities his oropharynx is clear he has no evidence of any stridor normal range of motion of his head and neck. Const Vital Signs: 02/15/25 22:42 02/16/25 00:42 02/16/25 02:00 Temperature 97.4 F L Temperature Source Oral Pulse Rate 96 80 Respiratory Rate 18 16 18 Blood Pressure 119/69 118/62 Blood Pressure Mean 85 80 Pulse Ox 98 94 Oxygen Delivery Method Room Air Room Air 02/16/25 04:00 Temperature Temperature Source Pulse Rate 80 Respiratory Rate 18 Blood Pressure 91/52 L Blood Pressure Mean 65 Pulse Ox Oxygen Delivery Method MDM MDM MDM Narrative Medical decision making narrative: Nursing notes, triage notes, available previous documentation, and vital signs were reviewed. Any discrepancies noted were addressed. Differential Diagnoses: We will evaluate for any evidence of a mass could be just chronic conditions will evaluate for electrolyte abnormalities patient denies being depressed or suicidal Interventions: Ativan Fluids Given: 1 L normal saline Labs Reviewed: Urine no evidence of infection but does show 150 ketones consistent with his poor p.o. intake. No leukocytosis leukopenia anemia thrombocytopenia electrolyte abnormality anion gap just slightly elevated at 17 total bili however is elevated 2.2 no transaminitis lipase is 17 Imaging Reviewed: Personally reviewed and interpreted by me: CT of the chest I do not see any obvious pneumonia edema or large obvious mass. EKG: Normal sinus rhythm rate of 85 no OK or QTc abnormalities no ST segment elevation of significance. EKG interpretation is noted and agreed to in the EMR. The interpretation of this patient's EKG contributed directly to the care and management of this patient. Previous Documentation Reviewed: None available or applicable at this time. ED Course: Patient presenting with symptoms as described above we did go ahead and send the patient down for CT however while he was down in CT he requested that can we do the CT tomorrow I do not feel like it right now. Patient ended up going down and getting the CT after receiving Ativan. 0405: CT reads without any acute pathology or mass. Patient does have ketonuria with concern is that there may be an underlying eating disorder 0410: I did discuss with the family as well as the patient they will follow-up with their medical care team return precautions follow-up recommendations provided patient stable for discharge home This note was made utilizing voice recognition software. All attempts were made to correct spelling or other errors prior to note completion. However, due to the fast-paced nature of emergency medicine, some errors may still be present. Lab Data Labs: Laboratory Results - last 24 hr 02/15/25 02/15/25 23:18 23:25 WBC 4.4 RBC 4.86 Hgb 14.9 Hct 42.4 MCV 87.2 MCH 30.7 MCHC 35.1 RDW Std Deviation 37.9 RDW Coeff of Suman 12.0 Plt Count 238 MPV 10.5 Immature Gran % (Auto) 0.200 Neut % (Auto) 65.8 Lymph % (Auto) 22.4 Morrill % (Auto) 10.2 H Eos % (Auto) 0.7 Baso % (Auto) 0.7 Absolute Neuts (auto) 2.9 Absolute Lymphs (auto) 0.99 Nucleated RBC % 0 Sodium 137 Potassium 3.6 Chloride 98 Carbon Dioxide 22.5 Anion Gap 17 H BUN 15 Creatinine 1.02 Estim Creat Clear Calc 86.93 Est GFR (MDRD) Non-Af 104 BUN/Creatinine Ratio 14.2 Glucose 106 H Calcium 10.1 Total Bilirubin 2.29 H AST 19 ALT 8 Alkaline Phosphatase 50 Total Protein 8.1 Albumin 5.0 Globulin 3.2 Albumin/Globulin Ratio 1.6 Lipase 17 Urine Color Yellow Urine Clarity Clear Urine pH 5.0 Ur Specific [place] 1.025 Urine Protein 30 H Urine Glucose (UA) Normal Urine Ketones 150 A* Urine Occult Blood Negative Urine Nitrite Negative Urine Bilirubin Negative Urine Urobilinogen 1 H Ur Leukocyte Esterase Negative Urine RBC 0 SEEN Urine WBC 0 SEEN Ur Squamous Epith Cells 0 SEEN Calcium Oxalate Crystal 1+ Urine Bacteria 0 SEEN Urine Mucus 3+ Radiography Diagnostic Testing: Clinical Impression(s) from Imaging Studies Chest/Abdomen/Pelvis CT 02/15/25 22:59 IMPRESSION: No CT evidence of an acute abnormality. No mass lesion is identified. Reading Location: [place] [address] Discharge Plan Triage Chief Complaint: Anxiety ED Provider: Yesika Aaron Dx/Rx/DC Orders Clinical Impression: Decreased oral intake, Weight loss, Fatigue, Hyperbilirubinemia, Ketonuria Instructions: ED Screening Exam Medical Nonurgent Primary Care Provider: Care Physician,No Primary Referrals: Care Physician,No Primary [Primary Care Provider, Medical] Activity Restrictions/Additional Instructions: You need to follow-up with your primary care doctor the rest of your medical care team fortunately the CTs do not show any evidence of a mass Print Language: Egyptian Disposition Disposition: Home, Self Care
[2025-02-16 00:21] LABS: Lipase 17 U/L (13-75)
[2025-02-16 00:26] LABS: AST(SGOT) 19 U/L (<=37); Alanine Aminotransfer ALT/SGPT 8 U/L (<=46); Albumin, Serum 5.0 g/dL (3.5-5.0); Alkaline Phosphatase 50 U/L (40-129); Anion Gap 17 (5-15); BUN 15 mg/dL (4-19); BUN/Creat Ratio 14.2 RATIO (10-20); Calcium,Total 10.1 mg/dL (7.6-11.0); Carbon Dioxide 22.5 mmol/L (21.0-32.0); Chloride 98 mmol/L (98-108); Estimated Creatinine Clearance 86.93 ml/min (50-250); Globulin 3.2 g/dL (2.2-4.2); Glucose 106 mg/dL (70-99); Potassium 3.6 mmol/L (3.3-5.1)
[2025-02-16 00:42] VITALS: RESP 16
[2025-02-16 02:00] VITALS: BP 118/62; PULSE 80; RESP 18; O2SAT 94
[2025-02-16 04:00] VITALS: BP 91/52; PULSE 80; RESP 18
[2025-02-16 04:29] VITALS: BP 98/56; PULSE 78; RESP 18; TEMP 36.8; O2SAT 100
== END 2025-02-16 04:29 | disposition home or self-care (01) ==
PROVIDERS: Emergency Provider Specialist/Technologist Athletic Trainer; Visit Provider Specialist/Technologist Athletic Trainer
DX: R63.8 Other symptoms and signs concerning food and fluid intake (principal); R63.4 Abnormal weight loss; R53.83 Other fatigue; E80.7 Disorder of bilirubin metabolism, unspecified; R82.4 Acetonuria; F41.9 Anxiety disorder, unspecified
CPT/HCPCS: 71260; 74177; 80053; 81001; 83690; 85025; 93005; 96361; 96374; 99283; Q9967

== ENCOUNTER → 2025-02-21 | Outpatient (CLI) | payer SELFPAY ==
[2025-02-21 10:52] LABS: Red Blood Cells-Urine 0 SEEN /hpf (0-5); Squamous Epithelial Cells - UA 0 SEEN /hpf (0-5)
[2025-02-21 12:24] LABS: Color, Urine Yellow (Yellow); Glucose, Dipstick Normal (Normal); Leukocyte Esterase-Dipstick Negative /ul (Negative); Nitrite-Dipstick Negative (Negative); Occult Blood-Urine Negative /ul (Negative); Protein-Dipstick 30 mg/dl (Negative); Specific Gravity, Urine 1.030 (1.002-1.030); Urine Bilirubin Dipstick Negative (Negative)
[2025-02-21 12:54] LABS: CORTISOL AM 13.60 ug/dL (6.02-18.40); Vitamin D,25 Hydroxy 30.6 ng/mL (30-100)
[2025-02-21 13:00] LABS: CRP < 3.00 mg/L (0.0-3.0); Magnesium 2.3 mg/dL (1.5-2.2)
[2025-02-21 13:07] LABS: Ketone-Dipstick 150 mg/dl (Negative)
[2025-02-21 13:11] LABS: Calcium Oxalate Crystals Ur 2+ /hpf (<or=2+); Mucous, Urine 1+ /hpf (<or=2+)
[2025-02-22 14:09] LABS: ANTINUCLEAR ANTIBODIES DIRECT Negative (Negative)
== END | disposition home or self-care (01) ==
LOC: MFPLAB 10:48
PROVIDERS: Visit Provider Family Medicine
DX: F41.9 Anxiety disorder, unspecified (principal); R53.83 Other fatigue
CPT/HCPCS: 36415; 81001; 82306; 82533; 83735; 84403; 84443; 85652; 86038; 86140